=== PATIENT | male | born 1940 | race Caucasian/White ===

== ENCOUNTER 2016-08-07 22:26 | Inpatient (IN) | payer BC ==
--- NOTE | 2016-08-07 22:44 | PDOC ---
History of Present Illness - General History Source: Patient Exam Limitations: No Limitations - History of Present Illness Initial Comments: 08/07/16 23:19 The patient is a 76 year old male with significant past medical history of CAD ( stents x2 and CABG) on plavix, hypertension, hyperlipidemia, GERD, and BPH who presents to the ED for 2 days of acute SOB. Patient also reports nonradiating chest pain, palpitations, and dry cough. States visiting his doctor where he was prescribed zithromax for a presumed bronchitis. Denies lightheadedness, diaphoresis, jaw pain, shoulder pain, arm pain, nausea, or vomiting. Denies sick contacts or recent travels. The patient denies fever, chills, abdominal pain, and diarrhea. Allergies: NKDA Social History: No alcohol, tobacco, or drug use reported. Past Surgical History: s/p stents x2, CABG PCP: Dr. Greyson Kirkland <Awilda Morris - Last Filed: 08/08/16 02:16> - General History Source: Patient <Bishop Gastelum - Last Filed: 08/08/16 19:21> - General Chief Complaint: Shortness of Breath Stated Complaint: CHEST PAIN Time Seen by Provider: 08/07/16 22:41 Past History <Awilda Morris - Last Filed: 08/08/16 02:16> - Past Medical History Cardiac Disorders: Yes GI Disorders: Yes (GERD) HTN: Yes Hypercholesterolemia: Yes - Surgical History Cardiac Surgery: Yes (triple bipass 3 yrs ago) - Psycho/Social/Smoking Cessation Hx Suicidal Ideation: No Smoking History: Never smoked <Bishop Gastelum - Last Filed: 08/08/16 19:21> - Past Medical History Allergies/Adverse Reactions: Allergies Allergy/AdvReac Type Severity Reaction Status Date / Time No Known Allergies Allergy Verified 08/07/16 22:40 Home Medications: Ambulatory Orders Clopidogrel Bisulfate [Plavix -] 75 mg PO DAILY 06/30/13 Nitroglycerin 0.4 mg SL ASDIR PRN 06/30/13 Quinapril HCl [Accupril -] 20 mg PO DAILY 06/30/13 Ranitidine HCl [Zantac] 150 mg PO DAILY 06/30/13 Simvastatin [Zocor -] 40 mg PO HS 06/30/13 Terazosin HCl 5 mg PO HS 06/30/13 Metoprolol Succinate [Toprol XL -] 50 mg PO DAILY #30 tablet 07/02/13 Cephalexin Monohydrate [Keflex -] 500 mg PO QID 08/07/16 Review of Systems - Review of Systems Able to Perform ROS?: Yes Comments:: 08/07/16 23:19 CONSTITUTIONAL: Absent: fever, chills, diaphoresis, generalized weakness, malaise, loss of appetite HEENT: Absent: rhinorrhea, nasal congestion, throat pain, throat swelling, difficulty swallowing, mouth swelling, ear pain, eye pain, visual Changes CARDIOVASCULAR: +chest pain, palpitations Absent: syncope, palpitations, irregular heart rate, lightheadedness, peripheral edema RESPIRATORY: +SOB, dry cough Absent: dyspnea with exertion, orthopnea, wheezing, stridor, hemoptysis GASTROINTESTINAL: Absent: abdominal pain, abdominal distension, nausea, vomiting, diarrhea, constipation, melena, hematochezia GENITOURINARY: Absent: dysuria, frequency, urgency, hesitancy, hematuria, flank pain, genital pain MUSCULOSKELETAL: Absent: myalgia, arthralgia, joint swelling SKIN: Absent: rash, itching, pallor NEUROLOGIC: Absent: headache, focal weakness or paresthesias, dizziness, unsteady gait, seizure, mental status changes, bladder or bowel incontinence <Awilda Morris - Last Filed: 08/08/16 02:16> *Physical Exam - Vital Signs Last Vital Signs Temp Pulse Resp BP Pulse Ox 97.9 F 110 H 20 129/80 90 L 08/07/16 22:39 08/07/16 22:39 08/07/16 22:39 08/07/16 22:39 08/07/16 23:05 - Physical Exam Comments: 08/07/16 23:19 GENERAL: Well developed, well nourished. Awake and alert. Moderate distress. HEENT: Normocephalic, atraumatic. PERRLA, EOMI. No conjunctival pallor. Sclera are non- icteric. Moist mucous membranes. Oropharynx is clear. NECK: Supple. Full ROM. No JVD. Carotid pulses 2+ and symmetric, without bruits. No thyromegaly. No lymphadenopathy. CARDIOVASCULAR: Tachycardia. Regular rhythm. No murmurs, rubs, or gallops. Distal pulses are 2+ and symmetric. PULMONARY: Tachypneic. Supraclavicular retractions. Conversational dyspnea. No wheezing, rales or rhonchi. ABDOMINAL: Soft. Non-tender. Non-distended. No rebound or guarding. No organomegaly. Normoactive bowel sounds. MUSCULOSKELETAL Normal range of motion at all joints. No bony deformities or tenderness. No CVA tenderness. EXTREMITIES: No cyanosis. No clubbing. No edema. No calf tenderness. SKIN: Warm and dry. Normal capillary refill. No rashes. No jaundice. NEUROLOGICAL: Alert, awake, appropriate. Cranial nerves 2-12 intact. Moving all extremities. No gross neurological deficits <wAilda Morris - Last Filed: 08/08/16 02:16> - Vital Signs Last Vital Signs Temp Pulse Resp BP Pulse Ox 97.9 F 110 H 20 129/80 79 L 08/07/16 22:39 08/07/16 22:39 08/07/16 22:39 08/07/16 22:39 08/07/16 22:39 <Bishop Gastelum - Last Filed: 08/08/16 19:21> Heart Score/ECG Review - ECG Impressions Comment:: 08/07/16 23:21 Sinus tachycardia @111bpm L axis deviation Incomplete RBBB Septal infarct, age undetermined Abnormal ECG <Awilda Morris - Last Filed: 08/08/16 02:16> ED Treatment Course - LABORATORY CBC & Chemistry Diagram: 08/07/16 23:15 08/07/16 23:15 - RADIOLOGY Radiograph Interpretation: 08/08/16 01:04 EXAM: Chest x-ray Reviewed by Imaging fire prevention research engineer: FINDINGS: No acute cardiopulmonary disease. No focal pneumonia. Prior coronary artery bypass graft surgery. 08/08/16 02:10 EXAM: CTA chest with contrast Reviewed by Imaging fire prevention research engineer: Findings: *Evaluation of the pulmonary arteries is limited due to moderate respiratory motion. Even so, there are extensive filling defects in the pulmonary arteries bilaterally, compatible with emboli. No saddle embolus. No obvious aortic dissection. Prior coronary artery bypass graft surgery. Small hiatal hernia. A few small nonspecific right middle lobe and left lower lobe nodules. Scattered atelectasis and fibrotic changes in the remainder of the lungs. No focal consolidation, pleural effusion, or pneumothorax. Indeterminate bilateral renal cysts. <Awilda Morris - Last Filed: 08/08/16 02:16> - LABORATORY CBC & Chemistry Diagram: 08/08/16 05:15 08/08/16 05:15 <Bishop Gastelum - Last Filed: 08/08/16 19:21> Medical Decision Making - Medical Decision Making 08/08/16 02:16 Reassessment: Patient reports he had vein stripping procedure 2 weeks ago to the left lower extremity. <Awilda Morris - Last Filed: 08/08/16 02:16> - Medical Decision Making 08/08/16 19:21 Dr. Gastelum: The scribe's documentation has been prepared under my direction and personally reviewed by me in its entirery. I confirm that the note above accurately reflects all work, treatment, procedures, and medical decision making performed by me. <Bishop Gastelum - Last Filed: 08/08/16 19:21> *DC/Admit/Observation/Transfer - Attestations Scribe Attestion: 08/07/16 23:22 Documentation prepared by Awilda Morris, acting as medical administrative specialist for Bishop Gastelum MD/DO. <Awilda Morris - Last Filed: 08/08/16 02:16> - Discharge Dispostion Admit: Yes <Bishop Gastelum - Last Filed: 08/08/16 19:21> Diagnosis at time of Disposition: Pulmonary embolism Qualifiers: Pulmonary embolism type: other Chronicity: acute - Referrals
[2016-08-07 23:25] LABS: BASOPHIL 0.3 % (0-2.0); EOSINOPHIL 1.5 % (0-4.5); MCH 29.7 pg (25.7-33.7); MCHC 32.7 g/dl (32.0-35.9); MEAN CELL VOLUME 90.9 fl (80-96); MEAN PLT VOLUME 9.6 fl (7.5-11.1); NEUTROPHILS 75.5 % (42.8-82.8); PLATELET COUNT 124 K/MM3 (134-434); WHITE BLOOD COUNT 8.8 K/mm3 (4.0-10.0)
[2016-08-07 23:37] LABS: INR 1.24 (0.82-1.09); PROTHROMBIN TIME (PATIENT) 13.7 SEC (9.98-11.88)
[2016-08-07 23:52] LABS: ALBUMIN 3.6 g/dl (3.4-5.0); ANION GAP 10 (8-16); BILIRUBIN,TOTAL 0.8 mg/dL (0.2-1.0); CALCIUM 8.6 mg/dL (8.5-10.1); CO2 24 mmol/L (21-32); CREATININE 1.1 mg/dL (0.7-1.3); GLUCOSE,RANDOM 222 mg/dL (74-106); SGOT/AST 24 U/L (15-37); SGPT/ALT 27 U/L (12-78); TOT PROT 6.5 g/dl (6.4-8.2)
[2016-08-07 23:53] LABS: ALK PHOS 50 U/L (45-117)
[2016-08-07 23:55] LABS: TROPONIN I 0.06 ng/ml (0.00-0.05)
[2016-08-08] MEDS ORDERED: ENOXAPARIN NA (PORCINE) 80 MG/0.8 ML DISP.SYRIN SQ ONE (02:12)
[2016-08-08] MEDS ORDERED: ENOXAPARIN NA (PORCINE) 80 MG/0.8 ML DISP.SYRIN SQ SCH (02:15)
--- NOTE | 2016-08-08 02:28 | PN ---
Teaching Attending Note Name of Resident: Rob Barton ATTENDING PHYSICIAN STATEMENT I saw and evaluated the patient. I reviewed the resident's note and discussed the case with the resident. I agree with the resident's findings and plan as documented. SUBJECTIVE: 76 yo M with Pmhx of CAD (s/p stent X2/CABG), HTN, HLD, GERD, and BPH who presents with shortness of breath, chest pain, palpitations. States he saw PMD and was prescribed Zithromax. Pt. had LLE vein stripping X 2 weeks ago, OBJECTIVE: Physical: VS: Vital Signs Period Temp Pulse Resp BP Sys/[place] Pulse Ox Last 24 Hr 97.9 F 103-110 18-20 129-134/80-80 79-92 GEN: Resting in bed, able to speak full sentences HEENT: NCAT, PERRL CARD: Stach S1, S2 RESP: CTAB ABD: BSX4, NTD to palpation EXT: - C/C/E EKG: Sinus tachycardia @111bpm L axis deviation Incomplete RBBB Septal infarct, age undetermined Abnormal EC CXR: Negative CTA- Bilateral PE, NO saddle emboli, small hiatal hernia, RML and LLL nodules non-specific, No consolidation or effusion ASSESSMENT AND PLAN: 76 yo M with pmhx of CAD, HTN, HLD, GERD, BPH and recent sx. who presents with shortness of breath, found to have a bilateral OK 1.) Bilateral PE- Provoked - Lovenox 1mg/kg Q 12 - Echo - Currently hemodynamically stable - Duplex LE - IF RV strain significant, or becomes unstable consider thrombolytics 2.) Hx. od CAD Chest Pain/Troponin elevation - Most likely demand - Trend - monitor on tele - C/W home meds 3.) HTN - Hold home meds for now 4.) HLD - C/w home meds 5.) Dvt Ppx - On Lovenox Admit to ICU CC time 38 Minutes
--- NOTE | 2016-08-08 03:14 | HP ---
CHIEF COMPLAINT: SOB PCP: Dr. Greyson Kirkland HISTORY OF PRESENT ILLNESS: 76 y/o M w/PMH of CAD s/p 2 stents, CABG, on plavix, HTN, HLD, GERD, BPH, presents to ER with SOB. Pt states he has had dry cough and SOB for the last few days that has remained the same over the frame. He came into the ER today because he began feeling palpitations. He also experienced exertional dyspnea during this time. He has also developed some midsternal chest pain that does not radiate during this time. His PCP suspected bronchitis and prescribed zithromax but it did not help pt. Pt reports having a LLE vein stripping procedure done 2 weeks. He denies N/V/F/C, SIDDIQUI, light-headedness, dizziness, visual changes, hearing changes, ringing in ears, peripheral swelling, calf pain , recent long travel history. ER course was notable for: (1) CXR, CTA chest, lovenox (2) (3) Recent Travel: denies PAST MEDICAL HISTORY:CAD s/p 2 stents, CABG, on plavix, HTN, HLD, GERD, BPH PAST SURGICAL HISTORY:2 stents, CABG, LLE vein stripping Social History: Smoking: denies Alcohol: denies Drugs: denies Family History: Mother: MS Allergies No Known Allergies Allergy (Verified 08/07/16 22:40) HOME MEDICATIONS: Home Medications Medication Instructions Recorded Clopidogrel Bisulfate [Plavix -] 75 mg PO DAILY 06/30/13 Nitroglycerin 0.4 mg SL ASDIR PRN 06/30/13 Quinapril HCl [Accupril -] 20 mg PO DAILY 06/30/13 Ranitidine HCl [Zantac] 150 mg PO DAILY 06/30/13 Simvastatin [Zocor -] 40 mg PO HS 06/30/13 Terazosin HCl 5 mg PO HS 06/30/13 Metoprolol Succinate [Toprol XL -] 50 mg PO DAILY #30 tablet 07/02/13 Cephalexin Monohydrate [Keflex -] 500 mg PO QID 08/07/16 REVIEW OF SYSTEMS CONSTITUTIONAL: Absent: fever, chills, diaphoresis, generalized weakness, malaise HEENT: Absent: ear pain, eye pain, visual changes CARDIOVASCULAR: +chest pain, palpitations Absent: chest pain, syncope, irregular heart rate, lightheadedness, peripheral edema RESPIRATORY: +dry cough, sob, exertional dyspnea Absent: orthopnea, wheezing, stridor, hemoptysis GASTROINTESTINAL: Absent: abdominal pain, abdominal distension, nausea, vomiting, diarrhea, constipation, hematochezia GENITOURINARY: Absent: dysuria, frequency, hematuria, flank pain, genital pain NEUROLOGIC: Absent: headache, focal weakness or paresthesias, dizziness Vital Signs Temperature 98.1 F 08/08/16 03:00 Pulse Rate 101 H 08/08/16 03:00 Respiratory Rate 18 08/08/16 03:00 Blood Pressure 130/76 08/08/16 03:00 O2 Sat by Pulse Oximetry (%) 93 L 08/08/16 03:00 PHYSICAL EXAMINATION GENERAL: Awake, alert, and fully oriented, with rapid breathing. HEAD: Normal with no signs of trauma. EYES: extraocular movements intact, sclera anicteric, conjunctiva clear. No lid lag. EARS, NOSE, THROAT: Ears normal, nares patent, Moist mucous membranes. NECK: Normal range of motion, supple LUNGS: tachypneic. Breath sounds equal, clear to auscultation bilaterally. No wheezes, and no crackles. No accessory muscle use. HEART: tachycardic. normal S1 and S2 without murmur, rub or gallop. ABDOMEN: Soft, nontender, not distended, normoactive bowel sounds, no guarding, no rebound, no masses. No hepatomegaly or splenomegaly. MUSCULOSKELETAL: Normal range of motion at all joints. No bony deformities or tenderness. No CVA tenderness. UPPER EXTREMITIES: 2+ radial pulses, warm, well-perfused. No peripheral edema. No pain with palpation. LOWER EXTREMITIES: 2+ DP pulses, warm, well-perfused. No calf tenderness. No peripheral edema. Homans sign negative. LLE with steristrips. NEUROLOGICAL: Normal speech. Gait not observed. PSYCHIATRIC: Cooperative. Good eye contact. Appropriate mood and affect. SKIN: Warm, dry CBCD WBC 8.8 K/mm3 (4.0-10.0) D 08/07/16 23:15 RBC 4.50 M/mm3 (4.00-5.60) 08/07/16 23:15 Hgb 13.4 GM/dL (11.7-16.9) 08/07/16 23:15 Hct 40.9 % (35.4-49) 08/07/16 23:15 MCV 90.9 fl (80-96) 08/07/16 23:15 MCHC 32.7 g/dl (32.0-35.9) 08/07/16 23:15 RDW 14.0 % (11.9-15.9) 08/07/16 23:15 Plt Count 124 K/MM3 (134-434) L 08/07/16 23:15 MPV 9.6 fl (7.5-11.1) D 08/07/16 23:15 CMP Sodium 141 mmol/L (136-145) 08/07/16 23:15 Potassium 4.0 mmol/L (3.5-5.1) 08/07/16 23:15 Chloride 107 mmol/L (98-107) 08/07/16 23:15 Carbon Dioxide 24 mmol/L (21-32) 08/07/16 23:15 Anion Gap 10 (8-16) 08/07/16 23:15 BUN 22 mg/dL (7-18) H D 08/07/16 23:15 Creatinine 1.1 mg/dL (0.7-1.3) D 08/07/16 23:15 Creat Clearance w eGFR > 60 (>60) 08/07/16 23:15 Random Glucose 222 mg/dL (74-106) H D 08/07/16 23:15 Calcium 8.6 mg/dL (8.5-10.1) 08/07/16 23:15 Total Bilirubin 0.8 mg/dL (0.2-1.0) D 08/07/16 23:15 AST 24 U/L (15-37) D 08/07/16 23:15 ALT 27 U/L (12-78) 08/07/16 23:15 Alkaline Phosphatase 50 U/L (45-117) D 08/07/16 23:15 Total Protein 6.5 g/dl (6.4-8.2) 08/07/16 23:15 Albumin 3.6 g/dl (3.4-5.0) 08/07/16 23:15 CARDIAC ENZYMES Creatine Kinase 97 IU/L (39-308) 08/07/16 23:15 Troponin I 0.06 ng/ml (0.00-0.05) H D 08/07/16 23:15 IMAGING: CXR: No acute cardiopulmonary disease. No focal pneumonia. Prior coronary artery bypass graft surgery. CTA Chest: Reviewed by Imaging fusion operator: Findings: *Evaluation of the pulmonary arteries is limited due to moderate respiratory motion. Even so, there are extensive filling defects in the pulmonary arteries bilaterally, compatible with emboli. No saddle embolus. No obvious aortic dissection. Prior coronary artery bypass graft surgery. Small hiatal hernia. A few small nonspecific right middle lobe and left lower lobe nodules. Scattered atelectasis and fibrotic changes in the remainder of the lungs. No focal consolidation, pleural effusion , or pneumothorax. Indeterminate bilateral renal cysts. EKG: Sinus tachycardia @111bpm L axis deviation Incomplete RBBB Septal infarct, age undetermined Abnormal ECG Active Medications Atorvastatin Calcium (Lipitor -) 20 mg PO HS AL Clopidogrel Bisulfate (Plavix -) 75 mg PO DAILY AL Enoxaparin Sodium (Lovenox -) 80 mg SQ BID AL Metoprolol Succinate (Toprol Xl -) 50 mg PO DAILY AL Non-Formulary Medication (Ranitidine Hcl [Zantac]) 150 mg PO DAILY AL Quinapril HCl (Accupril -) 20 mg PO DAILY AL Terazosin HCl (Hytrin -) 5 mg PO HS AL ASSESSMENT/PLAN: 76 y/o M w/PMH of CAD s/p 2 stents, CABG, on plavix, HTN, HLD, GERD, BPH, presents to ER with SOB, dry cough, exertional dyspnea over the last few days and palpitations today. Found to have B/L pulm artery embolisms on CTA chest. -B/L PE -D-dimer 3682, CTA chest prelim read findings suggest b/l pulm aa PE -lovenox 80 mg sq q12h (1mg/kg lovenox) -no hemodynamic instablility at this time -f/u official CTA chest read -Echo ordered, Duplex U/S b/l LE ordered -monitor for arrhythmias -O2 supp to keep O2 sat > 92% -Elevated trops -likely secondary to demand ischemia, trend -CAD -c/w plavix, metoprolol xl, atorvastatin 20 mg po qhs (converted from simvastatin) -HTN -c/w quinapril 20 mg po qd -BPH -c/w terazosin 5 mg po qhs -DVT ppx -on lovenox -FEN -No fluids at this time -Monitor electrolytes -Cardiac diet -Dispo -Monitor in ICU, if no beds available monitor on tele Visit type - Emergency Visit Emergency Visit: Yes ED Registration Date: 08/08/16 Care time: The patient presented to the Emergency Department on the above date and was hospitalized for further evaluation of their emergent condition. - New Patient This patient is new to me today: Yes Date on this admission: 08/08/16 - Critical Care Critical Care patient: Yes Total Critical Care Time (in minutes): 35 Critical Care Statement: The care of this patient involved high complexity decision making to prevent further life threatening deterioration of the patient 's condition and/or to evalute & treat vital organ system(s) failure or risk of failure.
[2016-08-08 03:43] LABS: ARTERIAL BLD GAS O2 SATURATION 93.9 % (90-98.9); ARTERIAL BLOOD GAS BASE EXCESS -0.9 meq/l (-2-2); ARTERIAL BLOOD GAS HCO3 22.3 meq/L (22-26); ARTERIAL BLOOD GAS PO2 70.4 mmHg (70-100); ARTERIAL BLOOD GAS pH 7.43 (7.35-7.45)
[2016-08-08 03:46] LABS: ALLENS TEST POSITIVE; ART PUNCT SITE RIGHT RADIAL; LPM/O2% 5.0LPM; PT. ON O2? YES; TYPE OF O2 NASAL CANNULA
[2016-08-08 04:05] VITALS: BMI 29.2
--- NOTE | 2016-08-08 04:36 | CONSULT ---
Consult Consult Specialty:: Pulm/CCM Reason for Consultation:: sub massive PE - History of Present Illness Chief Complaint: SOB, dry cough History of Present Illness: This is a 76 yo man HTN, HL, CAD s/p PCI and CABGx3 (~2008) who presented to ED with non productive cough x 2 days after recent LLE vein stripping. Patient recently seen by PMD and placed on azithromycin for cough. On day of admission he noted some non radiating CP with cough and palpitations and presented to ED. In ED patient hypoxic requiring NC 5lpm. DDimer positive. CTA done showing bilateral filling defects c/w PEs. BP stable 120/80s. Lovenox started. Patient denies: fever, chills, sick contacts, n/v/diarrhea. In the ICU patient seen w/o distress comfortable on NC. - History Source History Provided By: Patient, Medical Record Limitations to Obtaining History: No Limitations - Past Medical History Cardio/Vascular: Yes: CAD, HTN, Hyperlipdemia Gastrointestinal: Yes: GERD Renal/: Yes: BPH - Past Surgical History Past Surgical History: Yes: None, Vein Stripping/Ligation - Smoking History Smoking history: Never smoked - Social History Usual Living Arrangement: Alone Home Medications - Allergies Allergies/Adverse Reactions: Allergies Allergy/AdvReac Type Severity Reaction Status Date / Time No Known Allergies Allergy Verified 08/07/16 22:40 - Home Medications Home Medications: Ambulatory Orders Clopidogrel Bisulfate [Plavix -] 75 mg PO DAILY 06/30/13 Nitroglycerin 0.4 mg SL ASDIR PRN 06/30/13 Quinapril HCl [Accupril -] 20 mg PO DAILY 06/30/13 Ranitidine HCl [Zantac] 150 mg PO DAILY 06/30/13 Simvastatin [Zocor -] 40 mg PO HS 06/30/13 Terazosin HCl 5 mg PO HS 06/30/13 Metoprolol Succinate [Toprol XL -] 50 mg PO DAILY #30 tablet 07/02/13 Cephalexin Monohydrate [Keflex -] 500 mg PO QID 08/07/16 Family Disease History - Family Disease History Family History: Unremarkable Review of Systems - Review of Systems Cardiovascular: reports: Palpitations, Shortness of Breath Respiratory: reports: Cough, SOB on Exertion Physical Exam Vital Signs: Vital Signs Temperature 97.3 F L 08/08/16 03:43 Pulse Rate 105 H 08/08/16 03:43 Respiratory Rate 29 H 08/08/16 03:43 Blood Pressure 125/83 08/08/16 03:43 O2 Sat by Pulse Oximetry (%) 98 08/08/16 03:43 Current Medications Atorvastatin Calcium (Lipitor -) 20 mg PO HS [facility] Clopidogrel Bisulfate (Plavix -) 75 mg PO DAILY [facility] Enoxaparin Sodium (Lovenox -) 80 mg SQ BID [facility] Metoprolol Succinate (Toprol Xl -) 50 mg PO DAILY [facility] Quinapril HCl (Accupril -) 20 mg PO DAILY [facility] Ranitidine HCl (Zantac -) 150 mg PO DAILY AL Terazosin HCl (Hytrin -) 5 mg PO HS [facility] Constitutional: Yes: Well Nourished, Mild Distress Eyes: Yes: EOM Intact HENT: Yes: Normocephalic Neck: Yes: Trachea Midline Cardiovascular: Yes: Tachycardia, S1, S2 Respiratory: Yes: CTA Bilaterally Gastrointestinal: Yes: Normal Bowel Sounds, Soft Extremities: Yes: Erythema, Other (old Steristrips on left leg at sight of recent procedure) Edema: LLE: 2+, RLE: 1+ Neurological: Yes: Alert, Oriented Labs: CBCD WBC 8.8 K/mm3 (4.0-10.0) D 08/07/16 23:15 RBC 4.50 M/mm3 (4.00-5.60) 08/07/16 23:15 Hgb 13.4 GM/dL (11.7-16.9) 08/07/16 23:15 Hct 40.9 % (35.4-49) 08/07/16 23:15 MCV 90.9 fl (80-96) 08/07/16 23:15 MCHC 32.7 g/dl (32.0-35.9) 08/07/16 23:15 RDW 14.0 % (11.9-15.9) 08/07/16 23:15 Plt Count 124 K/MM3 (134-434) L 08/07/16 23:15 MPV 9.6 fl (7.5-11.1) D 08/07/16 23:15 CMP Sodium 141 mmol/L (136-145) 08/07/16 23:15 Potassium 4.0 mmol/L (3.5-5.1) 08/07/16 23:15 Chloride 107 mmol/L (98-107) 08/07/16 23:15 Carbon Dioxide 24 mmol/L (21-32) 08/07/16 23:15 Anion Gap 10 (8-16) 08/07/16 23:15 BUN 22 mg/dL (7-18) H D 08/07/16 23:15 Creatinine 1.1 mg/dL (0.7-1.3) D 08/07/16 23:15 Creat Clearance w eGFR > 60 (>60) 08/07/16 23:15 Random Glucose 222 mg/dL (74-106) H D 08/07/16 23:15 Calcium 8.6 mg/dL (8.5-10.1) 08/07/16 23:15 Total Bilirubin 0.8 mg/dL (0.2-1.0) D 08/07/16 23:15 AST 24 U/L (15-37) D 08/07/16 23:15 ALT 27 U/L (12-78) 08/07/16 23:15 Alkaline Phosphatase 50 U/L (45-117) D 08/07/16 23:15 Total Protein 6.5 g/dl (6.4-8.2) 08/07/16 23:15 Albumin 3.6 g/dl (3.4-5.0) 08/07/16 23:15 CARDIAC ENZYMES Creatine Kinase 97 IU/L (39-308) 08/07/16 23:15 Troponin I 0.06 ng/ml (0.00-0.05) H D 08/07/16 23:15 Laboratory Tests 08/07/16 08/07/16 23:15 23:15 D-Dimer 3682 H B-Natriuretic Peptide 508.70 H Imaging - Results Chest X-ray: Report Reviewed, Image Reviewed Cat Scan: Report Reviewed, Image Reviewed Problem List - Problems (1) Pulmonary embolism Code(s): I26.99 - OTHER PULMONARY EMBOLISM WITHOUT ACUTE COR PULMONALE Qualifiers: Pulmonary embolism type: other Chronicity: acute (2) CAD (coronary artery disease) Code(s): I25.10 - ATHSCL HEART DISEASE OF [place] CORONARY ARTERY W/O ANG PCTRS (3) Hyperlipidemia Code(s): E78.5 - HYPERLIPIDEMIA, UNSPECIFIED (4) Hypertension Code(s): I10 - ESSENTIAL (PRIMARY) HYPERTENSION Assessment/Plan a/p 76 yo man w/ bilateral PE -no ABX at this time does not appear infected -cont LMWH bid -O2 for sat >92% -monitor for signs of massive PE: hypotension, syncope, impending doom -ECHO -if significant RV strain noted consider IR for cath directed thrombolysis -LE dopplers -cont plavix and statin Boerem ACNP Pulm/CCM CCT: 35m
[2016-08-08] MEDS ORDERED: guaiFENesin/CODEINE 5 ML UNIT-DOSE CUPS PO ONE ×2 (06:03→19:10)
[2016-08-08 06:30] LABS: BASOPHIL 0.5 % (0-2.0); EOSINOPHIL 0.5 % (0-4.5); MCH 29.7 pg (25.7-33.7); MCHC 33.1 g/dl (32.0-35.9); MEAN CELL VOLUME 89.7 fl (80-96); MEAN PLT VOLUME 8.8 fl (7.5-11.1); NEUTROPHILS 66.9 % (42.8-82.8); PLATELET COUNT 126 K/MM3 (134-434); WHITE BLOOD COUNT 6.5 K/mm3 (4.0-10.0)
[2016-08-08 06:58] LABS: ALBUMIN 3.3 g/dl (3.4-5.0); ALK PHOS 47 U/L (45-117); ANION GAP 6 (8-16); BILIRUBIN,TOTAL 0.7 mg/dL (0.2-1.0); CALCIUM 8.1 mg/dL (8.5-10.1); CO2 29 mmol/L (21-32); CREATININE 0.9 mg/dL (0.7-1.3); GLUCOSE,RANDOM 118 mg/dL (74-106); SGOT/AST 20 U/L (15-37); SGPT/ALT 24 U/L (12-78)
--- NOTE | 2016-08-08 07:21 | PN ---
Physical Exam: SUBJECTIVE: Patient seen and examined complains of intermittent dry cough denies fevers, chest pain, palpitations, difficulty breathing, vomiting. OBJECTIVE: Vital Signs Period Temp Pulse Resp BP Sys/Callaway Pulse Ox Last 24 Hr 97.3 F-98.1 F 90-105 18-29 108-130/69-83 93-98 GENERAL: The patient is awake, alert, and fully oriented, in no acute distress. HEAD: Normal with no signs of trauma. EYES: PERRL, extraocular movements intact, sclera anicteric, conjunctiva clear. ENT: nares patent, oropharynx clear without exudates, moist mucous membranes. NECK: Trachea midline, full range of motion, supple. LUNGS: Breath sounds equal, clear to auscultation bilaterally, no wheezes, no crackles, no accessory muscle use. HEART: Regular rate and rhythm, S1, S2 without murmur, rub or gallop. ABDOMEN: Soft, nontender, nondistended, normoactive bowel sounds, no guarding EXTREMITIES: 2+ dorsalis pedis and radial pulses b/l, warm, well-perfused, no edema. left leg with steri strips in place medially. venous stasis hyperpigmented skin in left lower leg. NEUROLOGICAL: Cranial nerves II through XII grossly intact. Normal speech, 5/5 strength in hand senior advisory, 4/5 hip extension b/l. Laboratory Results - last 24 hr 08/08/16 08/08/16 08/08/16 03:30 05:15 05:15 WBC 6.5 RBC 4.30 Hgb 12.8 Hct 38.5 MCV 89.7 MCHC 33.1 RDW 14.0 Plt Count 126 L MPV 8.8 Neutrophils % 66.9 Lymphocytes % 21.6 D Monocytes % 10.5 H Eosinophils % 0.5 Basophils % 0.5 PTT (Actin FS) 38.7 H Puncture Site Right radial ABG pH 7.43 ABG pCO2 at Pt Temp 33.9 L ABG pO2 at Pt Temp 70.4 ABG HCO3 22.3 ABG O2 Sat (Measured) 93.9 ABG O2 Content 18.0 ABG Base Excess -0.9 Tunde Test Positive O2 Delivery Device Nasal cannula Oxygen Flow Rate 5.0lpm PEEP 0.0 Sodium Potassium Chloride Carbon Dioxide Anion Gap BUN Creatinine Creat Clearance w eGFR Random Glucose Calcium Total Bilirubin AST ALT Alkaline Phosphatase Total Protein Albumin 08/08/16 05:15 WBC RBC Hgb Hct MCV MCHC RDW Plt Count MPV Neutrophils % Lymphocytes % Monocytes % Eosinophils % Basophils % PTT (Actin FS) Puncture Site ABG pH ABG pCO2 at Pt Temp ABG pO2 at Pt Temp ABG HCO3 ABG O2 Sat (Measured) ABG O2 Content ABG Base Excess Tunde Test O2 Delivery Device Oxygen Flow Rate PEEP Sodium 143 Potassium 4.0 Chloride 108 H Carbon Dioxide 29 D Anion Gap 6 L BUN 21 H Creatinine 0.9 Creat Clearance w eGFR > 60 Random Glucose 118 H D Calcium 8.1 L Total Bilirubin 0.7 AST 20 ALT 24 Alkaline Phosphatase 47 Total Protein 6.0 L Albumin 3.3 L Active Medications Atorvastatin Calcium (Lipitor -) 20 mg PO HS [facility] Clopidogrel Bisulfate (Plavix -) 75 mg PO DAILY [facility] Last Admin: 08/08/16 11:38 Dose: 75 mg Enoxaparin Sodium (Lovenox -) 80 mg SQ BID [facility] Last Admin: 08/08/16 11:38 Dose: 80 mg Guaifenesin (Robitussin -) 10 ml PO Q4H PRN PRN Reason: COUGH Last Admin: 08/08/16 17:35 Dose: 10 ml Metoprolol Succinate (Toprol Xl -) 50 mg PO DAILY [facility] Last Admin: 08/08/16 11:38 Dose: 50 mg Quinapril HCl (Accupril -) 20 mg PO DAILY [facility] Last Admin: 08/08/16 15:31 Dose: 20 mg Ranitidine HCl (Zantac -) 150 mg PO DAILY [facility] Last Admin: 08/08/16 11:38 Dose: 150 mg Terazosin HCl (Hytrin -) 5 mg PO [facility] ASSESSMENT/PLAN: 76 year old man with HTN, HLD, CAD s/p PCI stent, CABG and recent left saphaneous embolectomy and presented to ED with cough, found to have elevated d -dimer and admitted to ICU for b/l PE seen on CTA. - report in chart from vein center regarding procedure Cardiovascular currently hemodynamically stable, echo today shows increased pulmonary HTN not previously seen on old echo (06/2013). NPO at midnight for TPA thrombolysis by IR tomorrow, AC with lovenox 80mg sq BID will likely need AC as outpatient, continue plavix po daily HTN controlled with toprol XL 50mg po daily, accupril 20mg po daily HLD - lipitor 20mg po HS troponin elevation likely from demand rather than ACS Pulmonary monitor for signs of respiratory distress maintain on nasal cannula, >92% saturation Guaifenesin 10mg po prn q4h for cough likley caused by PE Renal elevated cr - resolved GI Gerd Zantac 150mg po daily terazosin 5mg po HS Hematological - pt does not have personal or family hx of coagulopathy/PE/DVT/cancers(remote hx of likely basal cell cancer removed from his lower lip) , thrombus likely provoked from recent embolectomy/decreased mobility post-procedure. will likely require ac for 3 months as outpatient monitor platelet count, currently 126 DVT: lovenox Diet: cardiac diet Visit type - Emergency Visit Emergency Visit: No - New Patient This patient is new to me today: Yes Date on this admission: 08/08/16 - Critical Care Critical Care patient: Yes Total Critical Care Time (in minutes): 39 Critical Care Statement: The care of this patient involved high complexity decision making to prevent further life threatening deterioration of the patient 's condition and/or to evalute & treat vital organ system(s) failure or risk of failure.
--- NOTE | 2016-08-08 08:13 | PN ---
Physical Exam: SUBJECTIVE: Patient seen and examined in ICU. He stated that his shortness of breath has been getting worse in the past week with worsening non productive cough. Denies chest pain, palpitation, hemoptysis, abd pain, fever or chills. OBJECTIVE: Vital Signs Period Temp Pulse Resp BP Sys/Callaway Pulse Ox Last 24 Hr 97.3 F-98.1 F 90-105 18-29 108-130/69-83 93-98 GENERAL: AAO x 3, In mild cardiopulmonary distress on 4L NC EYES: PERRLA, sclera anicteric, conjunctiva clear. LUNGS: Fair air entry with rhonchi bilaterally HEART: tachycardic, S1 and S2 present, no murmur ABDOMEN: Soft, nontender, nondistended, normoactive bowel sounds. EXTREMITIES: chronic venous stasis with hyperpigmentation bilaterally, no edema , +2 symmetrical b/l peripheral pulses CBCD WBC 6.5 K/mm3 (4.0-10.0) 08/08/16 05:15 RBC 4.30 M/mm3 (4.00-5.60) 08/08/16 05:15 Hgb 12.8 GM/dL (11.7-16.9) 08/08/16 05:15 Hct 38.5 % (35.4-49) 08/08/16 05:15 MCV 89.7 fl (80-96) 08/08/16 05:15 MCHC 33.1 g/dl (32.0-35.9) 08/08/16 05:15 RDW 14.0 % (11.9-15.9) 08/08/16 05:15 Plt Count 126 K/MM3 (134-434) L 08/08/16 05:15 MPV 8.8 fl (7.5-11.1) 08/08/16 05:15 CMP Sodium 143 mmol/L (136-145) 08/08/16 05:15 Potassium 4.0 mmol/L (3.5-5.1) 08/08/16 05:15 Chloride 108 mmol/L (98-107) H 08/08/16 05:15 Carbon Dioxide 29 mmol/L (21-32) D 08/08/16 05:15 Anion Gap 6 (8-16) L 08/08/16 05:15 BUN 21 mg/dL (7-18) H 08/08/16 05:15 Creatinine 0.9 mg/dL (0.7-1.3) 08/08/16 05:15 Creat Clearance w eGFR > 60 (>60) 08/08/16 05:15 Calcium 8.1 mg/dL (8.5-10.1) L 08/08/16 05:15 Total Bilirubin 0.7 mg/dL (0.2-1.0) 08/08/16 05:15 AST 20 U/L (15-37) 08/08/16 05:15 ALT 24 U/L (12-78) 08/08/16 05:15 Alkaline Phosphatase 47 U/L (45-117) 08/08/16 05:15 Total Protein 6.0 g/dl (6.4-8.2) L 08/08/16 05:15 Albumin 3.3 g/dl (3.4-5.0) L 08/08/16 05:15 Intake & Output 08/05/16 08/06/16 08/07/16 08/08/16 23:59 23:59 23:59 23:59 Intake Total 50 Balance 50 Weight 81.647 kg 82 kg Active Medications Generic Name Dose Route Start Last Admin Trade Name Freq PRN Reason Stop Dose Admin Atorvastatin Calcium 20 mg 08/08/16 22:00 Lipitor - PO HS [facility] Clopidogrel Bisulfate 75 mg 08/08/16 10:00 Plavix - PO DAILY [facility] Enoxaparin Sodium 80 mg 08/08/16 10:00 Lovenox - SQ BID [facility] Metoprolol Succinate 50 mg 08/08/16 10:00 Toprol Xl - PO DAILY [facility] Quinapril HCl 20 mg 08/08/16 10:00 Accupril - PO DAILY [facility] Ranitidine HCl 150 mg 08/08/16 10:00 Zantac - PO DAILY [facility] Terazosin HCl 5 mg 08/08/16 22:00 Hytrin - PO HS [facility] IMAGING CTA on 08/07: extensive, bilateral pulmonary embolism Lower extremity doppler on 08/08: pending ECHO on 08/08: pending CXR on 08/07: no acute finding EKG on 08/07: Sinus tachycardia @111bpm, L axis deviation, Incomplete RBBB, Septal infarct, age undetermined ASSESSMENT/PLAN: 76 yo M h/o CAD s/p CABG + stents x 2 on plavix and chronic venous stasis s/p vein stripping admitted to the ICU for bilateral PE. Submassive Pulmonary Embolism - With possible RV strain * incomplete RBBB * elevated troponins and BNP * pending ECHO * avoid fluids that could cause RV dilation - Remains hemodynamically stable * maintain MAP > 65 - ICU team will decide on tPA * no absolute or relative contraindication for tPA - Cont. lovenox therapuetic dose of 80mg BID * RIETE score ~ 1-2: low to intermediate bleeding risk from PE anticoagulation - Cont. O2 to maintain sat > 92% Elevated troponins and BNP - Demand ischemia vs. RV strain - Cont. to trend trop CAD - Cont. plavix 75mg, metoprolol xl 50mg, atorvastatin 20 mg daily HTN - Cont. quinapril 20 mg daily BPH - Cont. terazosin 5 mg daily FEN - Avoid aggressive hydration - Monitor electrolytes - Cardiac diet Prophylaxis - DVT: on lovenox - GI: H2 katie Dispo - Cont. to monitor in ICU Visit type - Emergency Visit Emergency Visit: No - New Patient This patient is new to me today: Yes Date on this admission: 08/08/16 - Critical Care Critical Care patient: Yes Total Critical Care Time (in minutes): 45 Critical Care Statement: The care of this patient involved high complexity decision making to prevent further life threatening deterioration of the patient 's condition and/or to evalute & treat vital organ system(s) failure or risk of failure.
--- NOTE | 2016-08-08 11:07 | MSN ---
Progress Note (short form) - Note Progress Note: Subjective: Patient presented to the ER after 1 week of shortness of breath, dry cough, and nonradiating chest pain. Patient had been seen in the previous week by his primary care doctor and was treated with antibiotics for suspected bronchitis. His symptoms persisted which is why he was brought to the ER. The patient was found to have bilateral pulmonary emboli on CTA and right sided heart strain as demonstrated by right bundle branch block on EKG. Patient was admitted to the ICU. patient was seen by me at the bedside. Patient is alert and oriented and able to answer questions. The patient stated that he felt the same today as previous days. He stated that he still had a cough that is made worse by talking and movements. The patient denies any productive sputum or any chest pain at this time. The patient stated that he has had had symptoms like this before that have resolved after a week and he has never sought out medical care. The patient also denies any leg pain or swelling that may be attributed to previous deep vein thrombosis. . Patent also denies any fever, chills nausea , vomiting, headache or abdominal pain. Patient has been eating and drinking without issue and has been urinating and defecating regularly. Vital Signs Period Temp Pulse Resp BP Sys/Callaway Pulse Ox Last 24 Hr 97.3 F-98.4 F 84-110 18-29 107-134/65-83 79-98 Exam: General- patient is alert oriented, appears stated age and is in no acute distress Neuro- no focal neurological deficits are noted Eyes- PEARLA, EOM are intact, conjunctiva and sclera are clear and uncompromised. Neck- supple, trachea is midline, no JVD, no lyphadenopahty, no carotid bruit auscultated. Heart- regular rate and rhythm, normal S1 and S2 with no murmurs rubs or gallops. Lungs- Wheezes are heard bilaterally in all lung field, with coughing present with deep inspiration. no rales or rhonchi are present Extremities- 4/5 muscle strength and 2/4 pulses with intact sensation in all extremities with no swelling or edema in the lower extremities. Redness was noted bilaterally in the feet that is not new to the patient. Abdomen- no guarding or distention, normoactive bowel sounds, and no tenderness to palpation in any of the four quadrants. Laboratory Results - last 24 hr 08/07/16 08/07/16 08/07/16 23:15 23:15 23:15 WBC 8.8 D RBC 4.50 Hgb 13.4 Hct 40.9 MCV 90.9 MCHC 32.7 RDW 14.0 Plt Count 124 L MPV 9.6 D Neutrophils % 75.5 D Lymphocytes % 14.3 D Monocytes % 8.4 Eosinophils % 1.5 Basophils % 0.3 INR 1.24 H PTT (Actin FS) D-Dimer Puncture Site ABG pH ABG pCO2 at Pt Temp ABG pO2 at Pt Temp ABG HCO3 ABG O2 Sat (Measured) ABG O2 Content ABG Base Excess Tunde Test O2 Delivery Device Oxygen Flow Rate PEEP Sodium 141 Potassium 4.0 Chloride 107 Carbon Dioxide 24 Anion Gap 10 BUN 22 H D Creatinine 1.1 D Creat Clearance w eGFR > 60 Random Glucose 222 H D Calcium 8.6 Total Bilirubin 0.8 D AST 24 D ALT 27 Alkaline Phosphatase 50 D Creatine Kinase Troponin I B-Natriuretic Peptide Total Protein 6.5 Albumin 3.6 08/07/16 08/07/16 08/08/16 23:15 23:15 03:30 WBC RBC Hgb Hct MCV MCHC RDW Plt Count MPV Neutrophils % Lymphocytes % Monocytes % Eosinophils % Basophils % INR PTT (Actin FS) D-Dimer 3682 H Puncture Site Right radial ABG pH 7.43 ABG pCO2 at Pt Temp 33.9 L ABG pO2 at Pt Temp 70.4 ABG HCO3 22.3 ABG O2 Sat (Measured) 93.9 ABG O2 Content 18.0 ABG Base Excess -0.9 Tunde Test Positive O2 Delivery Device Nasal cannula Oxygen Flow Rate 5.0lpm PEEP 0.0 Sodium Potassium Chloride Carbon Dioxide Anion Gap BUN Creatinine Creat Clearance w eGFR Random Glucose Calcium Total Bilirubin AST ALT Alkaline Phosphatase Creatine Kinase 97 Troponin I 0.06 H D B-Natriuretic Peptide 508.70 H Total Protein Albumin 08/08/16 08/08/16 08/08/16 05:15 05:15 05:15 WBC 6.5 RBC 4.30 Hgb 12.8 Hct 38.5 MCV 89.7 MCHC 33.1 RDW 14.0 Plt Count 126 L MPV 8.8 Neutrophils % 66.9 Lymphocytes % 21.6 D Monocytes % 10.5 H Eosinophils % 0.5 Basophils % 0.5 INR PTT (Actin FS) 38.7 H D-Dimer Puncture Site ABG pH ABG pCO2 at Pt Temp ABG pO2 at Pt Temp ABG HCO3 ABG O2 Sat (Measured) ABG O2 Content ABG Base Excess Tunde Test O2 Delivery Device Oxygen Flow Rate PEEP Sodium 143 Potassium 4.0 Chloride 108 H Carbon Dioxide 29 D Anion Gap 6 L BUN 21 H Creatinine 0.9 Creat Clearance w eGFR > 60 Random Glucose 118 H D Calcium 8.1 L Total Bilirubin 0.7 AST 20 ALT 24 Alkaline Phosphatase 47 Creatine Kinase Troponin I B-Natriuretic Peptide Total Protein 6.0 L Albumin 3.3 L 08/08/16 05:15 WBC RBC Hgb Hct MCV MCHC RDW Plt Count MPV Neutrophils % Lymphocytes % Monocytes % Eosinophils % Basophils % INR PTT (Actin FS) D-Dimer Puncture Site ABG pH ABG pCO2 at Pt Temp ABG pO2 at Pt Temp ABG HCO3 ABG O2 Sat (Measured) ABG O2 Content ABG Base Excess Tunde Test O2 Delivery Device Oxygen Flow Rate PEEP Sodium Potassium Chloride Carbon Dioxide Anion Gap BUN Creatinine Creat Clearance w eGFR Random Glucose Calcium Total Bilirubin AST ALT Alkaline Phosphatase Creatine Kinase Troponin I 0.39 H D B-Natriuretic Peptide Total Protein Albumin Current Medications Generic Name Dose Route Start Last Admin Trade Name Freq PRN Reason Stop Dose Admin Atorvastatin Calcium 20 mg 08/08/16 22:00 Lipitor - PO HS [facility] Clopidogrel Bisulfate 75 mg 08/08/16 10:00 Plavix - PO DAILY [facility] Enoxaparin Sodium 80 mg 08/08/16 10:00 Lovenox - SQ BID [facility] Guaifenesin 10 ml 08/08/16 09:03 Robitussin - PO Q4H PRN COUGH Metoprolol Succinate 50 mg 08/08/16 10:00 Toprol Xl - PO DAILY [facility] Quinapril HCl 20 mg 08/08/16 10:00 Accupril - PO DAILY [facility] Ranitidine HCl 150 mg 08/08/16 10:00 Zantac - PO DAILY [facility] Terazosin HCl 5 mg 08/08/16 22:00 Hytrin - PO HS [facility] Imaging: Chest X-ray (08/07/16)- no significant interval change or acute lung disease. CTA of the chest (08/07/16)- Positive for diffuse bilateral pulmonary emboli. EKG (08/07/16)- left axis deviation, incomplete right bundle branch block. Echocardiogram (08/08/16)- right ventricular systolic pressure is elevated (30- 40mmhg), mild pulmonary hypertension, and ejection fraction of 42.1%. Ultrasound of lower extremities (08/08/16)- No evidence of Deep vein thrombosis, fully occlusion found superficially in the left greater saphenous vein Assessment and Plan: 76 year old male with past medical hx of CAD with 2 stents, CABG, HTN, HLD, GERD , BPH, presented to the ER with SOB< dry cough and dyspnea. Found to have bilateral pulmonary emboli. 1) Bilateral Pulmonary Emboli - D-dimer elavated at 3682 - BNP elevated at 508 - signs of right sided heart strain evidenced by incomplete RBBB on EKG - wells score of 7.5 designating the patient has high risk - Continue Lovenox 80mg sq BID 2) Elevated troponin level - likely secondary to right sided heart strain - increase from .06 to .39 - continue to monitor patient in ICU with telemetry - awaiting results of echocardiogram 3) CAD - continue plavix 75mg PO daily - metoprolol 50mg PO daily - atorvastatin 20 mg PO QHS 4) HTN -Quinopril 20 mg PO qd 5) BPH terazosin 5mg PO qhs DVT prophylaxis -continue lovonox 80 mg sq BID F/E/N - no IV fluids indicated - cardiac diet
[2016-08-08] MEDS ORDERED: PT OWN MED DRAWER 7, Y5N ONE ×2 (11:36→21:17)
[2016-08-08] MEDS: METOPROLOL SUCCINATE 50 MG TAB.SR.24H (FP) PO SCH (11:38)
[2016-08-08] MEDS: ENOXAPARIN NA (PORCINE) 80 MG/0.8 ML DISP.SYRIN SQ SCH ×2 (11:38→21:25)
[2016-08-08] MEDS: CLOPIDOGREL BISULFATE 75 MG TABLET (FP) PO SCH (11:38)
[2016-08-08] MEDS: RANITIDINE HCL 150 MG TABLET (FP) PO SCH (11:38)
[2016-08-08 13:11] LABS: TROPONIN I 0.38 ng/ml (0.00-0.05)
--- NOTE | 2016-08-08 13:15 | PN ---
Teaching Attending Note Name of Resident: Sindhu Corrales ATTENDING PHYSICIAN STATEMENT I saw and evaluated the patient. I reviewed the resident's note and discussed the case with the resident. I agree with the resident's findings and plan as documented. SUBJECTIVE: Patient seen and examined in the ICU. Awake and alert. No CP or SOB. ECHO performed at bedside : (+) Right heart strain/ Pulmonary HTN / LV dysfunction. Intake & Output 08/05/16 08/06/16 08/07/16 08/08/16 23:59 23:59 23:59 23:59 Intake Total 50 Balance 50 Weight 180 lb 180 lb 12.465 oz Last Vital Signs Temp Pulse Resp BP Pulse Ox 98.4 F 90 22 107/74 93 L 08/08/16 10:00 08/08/16 12:00 08/08/16 12:00 08/08/16 12:00 08/08/16 08:08 Active Medications Atorvastatin Calcium (Lipitor -) 20 mg PO [facility] Clopidogrel Bisulfate (Plavix -) 75 mg PO DAILY [facility] Last Admin: 08/08/16 11:38 Dose: 75 mg Enoxaparin Sodium (Lovenox -) 80 mg SQ BID [facility] Last Admin: 08/08/16 11:38 Dose: 80 mg Guaifenesin (Robitussin -) 10 ml PO Q4H PRN PRN Reason: COUGH Metoprolol Succinate (Toprol Xl -) 50 mg PO DAILY [facility] Last Admin: 08/08/16 11:38 Dose: 50 mg Quinapril HCl (Accupril -) 20 mg PO DAILY [facility] Ranitidine HCl (Zantac -) 150 mg PO DAILY [facility] Last Admin: 08/08/16 11:38 Dose: 150 mg Terazosin HCl (Hytrin -) 5 mg PO [facility] Constitutional: Yes: Awake and alert, NAD Eyes: Yes: EOM Intact HENT: Yes: Normocephalic Neck: Yes: Trachea Midline Cardiovascular: Yes: Tachycardia, S1, S2 Respiratory: Yes: CTA Bilaterally Gastrointestinal: Yes: Normal Bowel Sounds, Soft Extremities: Yes: Erythema, (+) intact Steri-strips on left leg Edema: LLE: 2+, RLE: 1+ Neurological: Yes: Alert, Oriented Labs: Laboratory Results - last 24 hr 08/07/16 08/07/16 08/07/16 23:15 23:15 23:15 WBC 8.8 D RBC 4.50 Hgb 13.4 Hct 40.9 MCV 90.9 MCHC 32.7 RDW 14.0 Plt Count 124 L MPV 9.6 D Neutrophils % 75.5 D Lymphocytes % 14.3 D Monocytes % 8.4 Eosinophils % 1.5 Basophils % 0.3 INR 1.24 H PTT (Actin FS) D-Dimer Puncture Site ABG pH ABG pCO2 at Pt Temp ABG pO2 at Pt Temp ABG HCO3 ABG O2 Sat (Measured) ABG O2 Content ABG Base Excess Tunde Test O2 Delivery Device Oxygen Flow Rate PEEP Sodium 141 Potassium 4.0 Chloride 107 Carbon Dioxide 24 Anion Gap 10 BUN 22 H D Creatinine 1.1 D Creat Clearance w eGFR > 60 Random Glucose 222 H D Calcium 8.6 Total Bilirubin 0.8 D AST 24 D ALT 27 Alkaline Phosphatase 50 D Creatine Kinase Troponin I B-Natriuretic Peptide Total Protein 6.5 Albumin 3.6 08/07/16 08/07/16 08/08/16 23:15 23:15 03:30 WBC RBC Hgb Hct MCV MCHC RDW Plt Count MPV Neutrophils % Lymphocytes % Monocytes % Eosinophils % Basophils % INR PTT (Actin FS) D-Dimer 3682 H Puncture Site Right radial ABG pH 7.43 ABG pCO2 at Pt Temp 33.9 L ABG pO2 at Pt Temp 70.4 ABG HCO3 22.3 ABG O2 Sat (Measured) 93.9 ABG O2 Content 18.0 ABG Base Excess -0.9 Tunde Test Positive O2 Delivery Device Nasal cannula Oxygen Flow Rate 5.0lpm PEEP 0.0 Sodium Potassium Chloride Carbon Dioxide Anion Gap BUN Creatinine Creat Clearance w eGFR Random Glucose Calcium Total Bilirubin AST ALT Alkaline Phosphatase Creatine Kinase 97 Troponin I 0.06 H D B-Natriuretic Peptide 508.70 H Total Protein Albumin 08/08/16 08/08/16 08/08/16 05:15 05:15 05:15 WBC 6.5 RBC 4.30 Hgb 12.8 Hct 38.5 MCV 89.7 MCHC 33.1 RDW 14.0 Plt Count 126 L MPV 8.8 Neutrophils % 66.9 Lymphocytes % 21.6 D Monocytes % 10.5 H Eosinophils % 0.5 Basophils % 0.5 INR PTT (Actin FS) 38.7 H D-Dimer Puncture Site ABG pH ABG pCO2 at Pt Temp ABG pO2 at Pt Temp ABG HCO3 ABG O2 Sat (Measured) ABG O2 Content ABG Base Excess Tunde Test O2 Delivery Device Oxygen Flow Rate PEEP Sodium 143 Potassium 4.0 Chloride 108 H Carbon Dioxide 29 D Anion Gap 6 L BUN 21 H Creatinine 0.9 Creat Clearance w eGFR > 60 Random Glucose 118 H D Calcium 8.1 L Total Bilirubin 0.7 AST 20 ALT 24 Alkaline Phosphatase 47 Creatine Kinase Troponin I B-Natriuretic Peptide Total Protein 6.0 L Albumin 3.3 L 08/08/16 05:15 WBC RBC Hgb Hct MCV MCHC RDW Plt Count MPV Neutrophils % Lymphocytes % Monocytes % Eosinophils % Basophils % INR PTT (Actin FS) D-Dimer Puncture Site ABG pH ABG pCO2 at Pt Temp ABG pO2 at Pt Temp ABG HCO3 ABG O2 Sat (Measured) ABG O2 Content ABG Base Excess Tunde Test O2 Delivery Device Oxygen Flow Rate PEEP Sodium Potassium Chloride Carbon Dioxide Anion Gap BUN Creatinine Creat Clearance w eGFR Random Glucose Calcium Total Bilirubin AST ALT Alkaline Phosphatase Creatine Kinase Troponin I 0.39 H D B-Natriuretic Peptide Total Protein Albumin Problem List - Problems (1) Pulmonary embolism Code(s): I26.99 - OTHER PULMONARY EMBOLISM WITHOUT ACUTE COR PULMONALE Qualifiers: Pulmonary embolism type: other Chronicity: acute (2) CAD (coronary artery disease) Code(s): I25.10 - ATHSCL HEART DISEASE OF [place] CORONARY ARTERY W/O ANG PCTRS (3) Hyperlipidemia Code(s): E78.5 - HYPERLIPIDEMIA, UNSPECIFIED (4) Hypertension Code(s): I10 - ESSENTIAL (PRIMARY) HYPERTENSION Assessment/Plan Full dose AC Consult IR to assess for Catheter directed thrombolysis : does not meet criteria for systemic therapy O2 to maintain saturation >92% Plavix Statin ICU monitoring Dr Pabon Critical care time spent in reviewing chart, evaluating patient and formulating plan 35 min
--- NOTE | 2016-08-08 13:34 | PN ---
Teaching Attending Note Name of Resident: Juan Delgado ATTENDING PHYSICIAN STATEMENT I saw and evaluated the patient. I reviewed the resident's note and discussed the case with the resident. I agree with the resident's findings and plan as documented. SUBJECTIVE: Patient feels short of breath. OBJECTIVE: Vital Signs Period Temp Pulse Resp BP Sys/Callaway Pulse Ox Last 24 Hr 97.3 F-98.4 F 84-110 18-29 107-134/65-83 79-98 HEART: S1S2, RRR LUNGS: Clear ABDOMEN: Soft, non-tender, non-distended, normal BS EXTREMITIES: Bilateral venous stasis changes with trace edema. LLE surgical incision with Steri-strips in place ASSESSMENT AND PLAN: This is a 76 year old man with a history of HTN, hyperlipidemia, CAD, CABG, stents, GERD, BPH, chronic venous stasis, recent LLE vein stripping who presented to the ER with shortness of breath. 1. Bilateral pulmonary emboli - Hemodynamically stable - D-dimer 3682, BNP 508.7, troponin 0.06 -> 0.39 -> 0.38 - Echo shows mildly to moderately reduced LV systolic function, impaired LV relaxation, moderately dilated LA, mild to moderate TR, RVSP 30-40 mmHg, mild pulmonary HTN - Continue Lovenox - IR to evaluate for catheter-directed thrombolysis 2. CAD, history of CABG, stents - Continue Plavix, Toprol XL, Lipitor 3. HTN - Continue Accupril, Toprol XL 4. BPH - Continue Hytrin 5. Hyperlipidemia - Continue Lipitor 6. GERD 7. Chronic venous stasis, recent LLE vein stripping
--- NOTE | 2016-08-08 14:40 | EKG ---
Test Reason : Blood Pressure : / mmHG Vent. Rate : 111 BPM Atrial Rate : 111 BPM P-R Int : 178 ms QRS Dur : 110 ms QT Int : 330 ms P-R-T Axes : 060 -40 090 degrees QTc Int : 448 ms SINUS TACHYCARDIA LEFT AXIS DEVIATION CANNOT RULE OUT SEPTAL INFARCT (CITED ON OR BEFORE 30-JUN-2013) ABNORMAL ECG WHEN COMPARED WITH ECG OF 30-JUN-2013 23:08, VENT. RATE HAS INCREASED Confirmed by NINA CARTER, ELEUTERIO ([id number]) on 08/08/2016 2:39:35 PM Referred By: Confirmed By:ELEUTERIO WOOD MD
[2016-08-08] MEDS: QUINAPRIL HCL 20 MG TABLET (FP) PO SCH (15:31)
[2016-08-08] MEDS: guaiFENesin 200 MG/10 ML 10 ML UNIT-DOSE CUPS PO PRN (17:35)
[2016-08-08] MEDS: ATORVASTATIN CA 20 MG TABLET (FP) PO SCH (21:24)
[2016-08-08] MEDS: TERAZOSIN HCL 5 MG CAPSULE PO SCH (23:32)
[2016-08-09 06:30] LABS: BASOPHIL 0.5 % (0-2.0); EOSINOPHIL 2.3 % (0-4.5); MCH 29.7 pg (25.7-33.7); MCHC 32.8 g/dl (32.0-35.9); MEAN CELL VOLUME 90.6 fl (80-96); MEAN PLT VOLUME 9.7 fl (7.5-11.1); NEUTROPHILS 62.9 % (42.8-82.8); PLATELET COUNT 141 K/MM3 (134-434); WHITE BLOOD COUNT 7.5 K/mm3 (4.0-10.0)
[2016-08-09 06:45] LABS: INR 1.31 (0.82-1.09); PROTHROMBIN TIME (PATIENT) 14.5 SEC (9.98-11.88)
[2016-08-09 07:00] LABS: ANION GAP 7 (8-16); CALCIUM 8.3 mg/dL (8.5-10.1); CO2 26 mmol/L (21-32); GLUCOSE,RANDOM 105 mg/dL (74-106)
[2016-08-09 07:01] LABS: CREATININE 0.9 mg/dL (0.7-1.3)
--- NOTE | 2016-08-09 07:49 | PN ---
Physical Exam: SUBJECTIVE: Patient seen and examined. slept well last night, has sob when he tries to get out of bed or moves around Cry cough continues with fits at times, no hemoptysis or vomiting denies chest pain, abdominal pain, headache. OBJECTIVE: Vital Signs Period Temp Pulse Resp BP Sys/Callaway Pulse Ox Last 24 Hr 98 F-98.6 F 81-96 22-32 91-164/59-79 93-95 GENERAL: The patient is awake, alert, and fully oriented, in no acute distress. EYES: PERRL, extraocular movements intact, sclera anicteric, conjunctiva clear. ENT: nares patent, oropharynx clear without exudates, moist mucous membranes. LUNGS: clear to auscultation bilaterally, no wheezes, no crackles, no accessory muscle use. HEART: Regular rate and rhythm, S1, S2 without murmur, rub or gallop. ABDOMEN: Soft, nontender, nondistended, normoactive bowel sounds, no guarding EXTREMITIES: 2+ dorsalis pedis and radial pulses b/l, warm, well-perfused, no edema. left leg with steri strips in place medially. venous stasis hyperpigmented skin in left lower leg. Laboratory Results - last 24 hr 08/08/16 08/09/16 08/09/16 12:30 05:20 05:20 WBC 7.5 RBC 4.38 Hgb 13.0 Hct 39.7 MCV 90.6 MCHC 32.8 RDW 14.0 Plt Count 141 MPV 9.7 D Neutrophils % 62.9 Lymphocytes % 23.9 Monocytes % 10.4 H Eosinophils % 2.3 D Basophils % 0.5 INR Sodium 141 Potassium 4.0 Chloride 108 H Carbon Dioxide 26 Anion Gap 7 L BUN 20 H Creatinine 0.9 Random Glucose 105 Calcium 8.3 L Creatine Kinase 111 Troponin I 0.38 H 08/09/16 05:20 WBC RBC Hgb Hct MCV MCHC RDW Plt Count MPV Neutrophils % Lymphocytes % Monocytes % Eosinophils % Basophils % INR 1.31 H Sodium Potassium Chloride Carbon Dioxide Anion Gap BUN Creatinine Random Glucose Calcium Creatine Kinase Troponin I Active Medications Generic Name Dose Route Start Last Admin Trade Name Freq PRN Reason Stop Dose Admin Atorvastatin Calcium 20 mg 08/08/16 22:00 08/08/16 21:24 Lipitor - PO 20 mg HS AL Administration Clopidogrel Bisulfate 75 mg 08/08/16 10:00 08/08/16 11:38 Plavix - PO 75 mg DAILY AL Administration Enoxaparin Sodium 80 mg 08/08/16 10:00 08/08/16 21:25 Lovenox - SQ 80 mg BID AL Administration Guaifenesin 10 ml 08/08/16 09:03 08/08/16 17:35 Robitussin - PO 10 ml Q4H PRN Administration COUGH Metoprolol Succinate 50 mg 08/08/16 10:00 08/08/16 11:38 Toprol Xl - PO 50 mg DAILY AL Administration Quinapril HCl 20 mg 08/08/16 10:00 08/08/16 15:31 Accupril - PO 20 mg DAILY AL Administration Ranitidine HCl 150 mg 08/08/16 10:00 08/08/16 11:38 Zantac - PO 150 mg DAILY AL Administration Terazosin HCl 5 mg 08/08/16 22:00 08/08/16 23:32 Hytrin - PO 5 mg HS AL Administration ASSESSMENT/PLAN: 76 year old man with HTN, HLD, CAD s/p PCI stent, CABG and recent left saphaneous embolectomy and presented to ED with cough, found to have elevated d -dimer and admitted to ICU for b/l PE seen on CTA. Cardiovascular NPO at midnight for repeat angiogram tomorrow, - hold lovenox while on TPA continue plavix po daily - hold while on TPA - continue heparin drip with drip protocol HTN controlled with toprol XL 50mg po daily(continue), accupril 20mg po daily ( hold today, restart tomorrow) HLD - lipitor 20mg po HS Pulmonary monitor for signs of respiratory distress maintain on nasal cannula, >92% saturation Guaifenesin AC 10mg po prn q4h for cough likley caused by PE GI Gerd Zantac 150mg po daily terazosin 5mg po HS Hematological - pt does not have personal or family hx of coagulopathy/PE/DVT/cancers(remote hx of likely basal cell cancer removed from his lower lip) , thrombus likely provoked from recent embolectomy/decreased mobility post-procedure. will likely require ac for 3 months as outpatient monitor platelet count, currently 126 DVT: on heparin drip Diet: full liquid diet Visit type - Emergency Visit Emergency Visit: No - New Patient This patient is new to me today: No - Critical Care Critical Care patient: Yes Total Critical Care Time (in minutes): 35 Critical Care Statement: The care of this patient involved high complexity decision making to prevent further life threatening deterioration of the patient 's condition and/or to evalute & treat vital organ system(s) failure or risk of failure.
--- NOTE | 2016-08-09 08:27 | PN ---
Physical Exam: SUBJECTIVE: Patient seen and examined in ICU. He still has shortness of breath but only occurs when coughing. The cough has improved on robitussin, however. Denies chest pain, palpitation, hemoptysis, abd pain, fever or chills. No acute event noted overnight. OBJECTIVE: Vital Signs Period Temp Pulse Resp BP Sys/Callaway Pulse Ox Last 24 Hr 98 F-98.6 F 81-96 22-32 91-164/59-74 93-95 GENERAL: AAO x 3, not in cardiopulmonary distress on 4L NC EYES: PERRLA, sclera anicteric, conjunctiva clear. LUNGS: Fair air entry with rhonchi bilaterally HEART: RRR, S1 and S2 present, no murmur ABDOMEN: Soft, nontender, nondistended, normoactive bowel sounds. EXTREMITIES: chronic venous stasis with hyperpigmentation bilaterally, no edema , +2 symmetrical b/l peripheral pulses CBCD WBC 7.5 K/mm3 (4.0-10.0) 08/09/16 05:20 RBC 4.38 M/mm3 (4.00-5.60) 08/09/16 05:20 Hgb 13.0 GM/dL (11.7-16.9) 08/09/16 05:20 Hct 39.7 % (35.4-49) 08/09/16 05:20 MCV 90.6 fl (80-96) 08/09/16 05:20 MCHC 32.8 g/dl (32.0-35.9) 08/09/16 05:20 RDW 14.0 % (11.9-15.9) 08/09/16 05:20 Plt Count 141 K/MM3 (134-434) 08/09/16 05:20 MPV 9.7 fl (7.5-11.1) D 08/09/16 05:20 CMP Sodium 141 mmol/L (136-145) 08/09/16 05:20 Potassium 4.0 mmol/L (3.5-5.1) 08/09/16 05:20 Chloride 108 mmol/L (98-107) H 08/09/16 05:20 Carbon Dioxide 26 mmol/L (21-32) 08/09/16 05:20 Anion Gap 7 (8-16) L 08/09/16 05:20 BUN 20 mg/dL (7-18) H 08/09/16 05:20 Creatinine 0.9 mg/dL (0.7-1.3) 08/09/16 05:20 Creat Clearance w eGFR > 60 (>60) 08/08/16 05:15 Calcium 8.3 mg/dL (8.5-10.1) L 08/09/16 05:20 Total Bilirubin 0.7 mg/dL (0.2-1.0) 08/08/16 05:15 AST 20 U/L (15-37) 08/08/16 05:15 ALT 24 U/L (12-78) 08/08/16 05:15 Alkaline Phosphatase 47 U/L (45-117) 08/08/16 05:15 Total Protein 6.0 g/dl (6.4-8.2) L 08/08/16 05:15 Albumin 3.3 g/dl (3.4-5.0) L 08/08/16 05:15 Intake & Output 08/06/16 08/07/16 08/08/16 08/09/16 23:59 23:59 23:59 23:59 Intake Total 780 Output Total 1030 250 Balance -250 -250 Weight 81.647 kg 82 kg 80 kg Active Medications Generic Name Dose Route Start Last Admin Trade Name Freq PRN Reason Stop Dose Admin Atorvastatin Calcium 20 mg 08/08/16 22:00 08/08/16 21:24 Lipitor - PO 20 mg HS AL Administration Clopidogrel Bisulfate 75 mg 08/08/16 10:00 08/08/16 11:38 Plavix - PO 75 mg DAILY AL Administration Enoxaparin Sodium 80 mg 08/08/16 10:00 08/08/16 21:25 Lovenox - SQ 80 mg BID AL Administration Guaifenesin 10 ml 08/08/16 09:03 08/08/16 17:35 Robitussin - PO 10 ml Q4H PRN Administration COUGH Metoprolol Succinate 50 mg 08/08/16 10:00 08/08/16 11:38 Toprol Xl - PO 50 mg DAILY AL Administration Quinapril HCl 20 mg 08/08/16 10:00 08/08/16 15:31 Accupril - PO 20 mg DAILY AL Administration Ranitidine HCl 150 mg 08/08/16 10:00 08/08/16 11:38 Zantac - PO 150 mg DAILY AL Administration Terazosin HCl 5 mg 08/08/16 22:00 08/08/16 23:32 Hytrin - PO 5 mg HS AL Administration IMAGING CTA on 08/07: extensive, bilateral pulmonary embolism Lower extremity doppler on 08/08: No DVT. Superficial thrombus in L greater saphenous vein. ECHO on 08/08: Elevated RV pressure and reduced LV function CXR on 08/07: no acute finding EKG on 08/07: Sinus tachycardia @111bpm, L axis deviation, Incomplete RBBB, Septal infarct, age undetermined ASSESSMENT/PLAN: 76 yo M h/o CAD s/p CABG + stents x 2 on plavix and chronic venous stasis s/p vein stripping admitted to the ICU for bilateral PE. Submassive Pulmonary Embolism - Remains hemodynamically stable * maintain MAP > 65 - Confirmed RV strain on ECHO * EKG shows incomplete RBBB * Initially elevated troponins and BNP * Avoid fluids that could cause RV dilation - Catheter directed tPA infusion scheduled today * No absolute or relative contraindication for tPA - Cont. lovenox therapuetic dose of 80mg BID * RIETE score ~ 1-2: low to intermediate bleeding risk from PE anticoagulation - Cont. O2 to maintain sat > 92% Elevated troponins and BNP - Demand ischemia vs. RV strain - Downward trend CAD - Cont. plavix 75mg, metoprolol xl 50mg, atorvastatin 20 mg daily HTN - Cont. quinapril 20 mg daily BPH - Cont. terazosin 5 mg daily FEN - Avoid aggressive hydration - Monitor electrolytes - Liquid diet Prophylaxis - DVT: on lovenox - GI: H2 katie Dispo - Cont. to monitor in ICU Visit type - Emergency Visit Emergency Visit: No - New Patient This patient is new to me today: No - Critical Care Critical Care patient: Yes Total Critical Care Time (in minutes): 45 Critical Care Statement: The care of this patient involved high complexity decision making to prevent further life threatening deterioration of the patient 's condition and/or to evalute & treat vital organ system(s) failure or risk of failure.
[2016-08-09] MEDS: RANITIDINE HCL 150 MG TABLET (FP) PO SCH ×2 (08:51→15:53)
[2016-08-09] MEDS: METOPROLOL SUCCINATE 50 MG TAB.SR.24H (FP) PO SCH ×2 (08:52→14:05)
[2016-08-09] MEDS ORDERED: HEPARIN NA (PORCINE) 5,000 UNITS/ML 1ML VIAL IVPUSH PRN (09:00)
[2016-08-09] MEDS: HEPARIN INFUSION - 500 ML IVPB SCH ×2 (09:28→20:19)
[2016-08-09] MEDS ORDERED: ALTEPLASE 50MG 25 MG in SODIUM CHLORIDE 250 ML IVPB SCH (11:00)
[2016-08-09] MEDS ORDERED: SODIUM CHLORIDE 1,000 ML IV SCH (13:30)
--- NOTE | 2016-08-09 14:12 | PN ---
Teaching Attending Note Name of Resident: Sindhu Corrales ATTENDING PHYSICIAN STATEMENT I saw and evaluated the patient. I reviewed the resident's note and discussed the case with the resident. I agree with the resident's findings and plan as documented. SUBJECTIVE: Pt seen and examined in the ICU. Catheter directed thrombolysis with alteplase infusing. Denies shortness of breath or chest pain. OBJECTIVE: Last Vital Signs Temp Pulse Resp BP Pulse Ox 98.5 F 70 19 96/84 94 L 08/09/16 13:42 08/09/16 13:42 08/09/16 13:40 08/09/16 13:40 08/09/16 13:40 Intake & Output 08/06/16 08/07/16 08/08/16 08/09/16 23:59 23:59 23:59 23:59 Intake Total 780 Output Total 1030 250 Balance -250 -250 Weight 180 lb 180 lb 12.465 oz 176 lb 5.917 oz Gen: NAD at rest Heart: RRR Lung: decreased breath sounds at the bases Abd: soft, nontender Ext: no edema CBC, BMP 08/09/16 05:20 08/09/16 05:20 Active Medications Atorvastatin Calcium (Lipitor -) 20 mg PO HS AL Last Admin: 08/08/16 21:24 Dose: 20 mg Clopidogrel Bisulfate (Plavix -) 75 mg PO DAILY AL Last Admin: 08/08/16 11:38 Dose: 75 mg Guaifenesin (Robitussin -) 10 ml PO Q4H PRN PRN Reason: COUGH Last Admin: 08/08/16 17:35 Dose: 10 ml Heparin Sodium (Porcine) (Heparin -) 1,000 unit IVPUSH PRN PRN PRN Reason: Heparin Heparin Sodium (Porcine) (Heparin -) 5,000 unit IVPUSH PRN PRN PRN Reason: Heparin Heparin Sodium/Dextrose (Heparin Infusion -) 500 mls @ 20 mls/hr IVPB TITR AL ; 1,000 UNITS/HR PRN Reason: Protocol Last Titration: 08/09/16 12:48 Dose: 500 units/hr Alteplase, Recombinant 25 mg/ (Sodium Chloride) 250 mls @ 5 mls/hr IVPB Q24H AL Stop: 08/10/16 10:59 Last Admin: 08/09/16 12:48 Dose: 5 mls/hr Alteplase, Recombinant 25 mg/ (Sodium Chloride) 250 mls @ 5 mls/hr IVPB Q24H [facility] Stop: 08/10/16 10:59 Last Admin: 08/09/16 12:47 Dose: 5 mls/hr Sodium Chloride (Normal Saline -) 1,000 mls @ 75 mls/hr IV ASDIR [facility] Stop: 08/09/16 21:29 Last Admin: 08/09/16 14:03 Dose: 75 mls/hr Metoprolol Succinate (Toprol Xl -) 50 mg PO DAILY [facility] Last Admin: 08/09/16 14:05 Dose: Not Given Quinapril HCl (Accupril -) 20 mg PO DAILY [facility] Last Admin: 08/08/16 15:31 Dose: 20 mg Ranitidine HCl (Zantac -) 150 mg PO DAILY [facility] Last Admin: 08/09/16 08:51 Dose: 150 mg Terazosin HCl (Hytrin -) 5 mg PO HS [facility] Last Admin: 08/08/16 23:32 Dose: 5 mg ASSESSMENT AND PLAN: Pulmonary Emboli Pulmonary HTN LV Systolic/Diastolic Dysfuntion CAD s/p CABG HTN GERD BPH - continue catheter directed thrombolysis - IVF - continue anticoagulatoin - O2 to keep SpO2 >90% - continue cardiac meds - ICU monitoring while on tPA
--- NOTE | 2016-08-09 14:44 | MSN ---
Progress Note (short form) - Note Progress Note: Subjective: Patient was seen by me at the bedside. The patient stated that his cough is unchanged from previous days. The patient continues to deny any sputum, chest pain, or headache. The patient stated that his cough is worse when moving around , taking deep breathes and with prolonged talking. The patient also denies any nauseas vomiting, fever or chills. The patient has been placed on NPO diet but was previously tolerating solids and liquids. The patient complains of constipation but has been urinating regularly. Vital Signs Period Temp Pulse Resp BP Sys/Callaway Pulse Ox Last 24 Hr 98 F-98.8 F 70-96 18-32 91-131/59-84 93-100 Exam: Gen- alert and oriented, in no acute distress heart- regular rate and rhythm, normal S1 and S2, no murmurs, rubs, or gallops lungs- clear to auscultation bilaterally in all lung mayes Extremities- 4/5 muscle strength and 2/4 pulses with intact sensation in all extremities, no swelling or peripheral edema. Abdomen- no guarding or distension, normoactive bowel sounds, no tenderness to palpation in all four quadrants. Laboratory Results - last 24 hr 08/09/16 08/09/16 08/09/16 05:20 05:20 05:20 WBC 7.5 RBC 4.38 Hgb 13.0 Hct 39.7 MCV 90.6 MCHC 32.8 RDW 14.0 Plt Count 141 MPV 9.7 D Neutrophils % 62.9 Lymphocytes % 23.9 Monocytes % 10.4 H Eosinophils % 2.3 D Basophils % 0.5 INR 1.31 H Sodium 141 Potassium 4.0 Chloride 108 H Carbon Dioxide 26 Anion Gap 7 L BUN 20 H Creatinine 0.9 Random Glucose 105 Calcium 8.3 L Blood Type Antibody Screen 08/09/16 08/09/16 09:20 09:32 WBC RBC Hgb Hct MCV MCHC RDW Plt Count MPV Neutrophils % Lymphocytes % Monocytes % Eosinophils % Basophils % INR Sodium Potassium Chloride Carbon Dioxide Anion Gap BUN Creatinine Random Glucose Calcium Blood Type O NEGATIVE O NEGATIVE Antibody Screen Negative Current Medications Generic Name Dose Route Start Last Admin Trade Name Freq PRN Reason Stop Dose Admin Atorvastatin Calcium 20 mg 08/08/16 22:00 08/08/16 21:24 Lipitor - PO 20 mg HS AL Administration Clopidogrel Bisulfate 75 mg 08/08/16 10:00 08/08/16 11:38 Plavix - PO 75 mg DAILY AL Administration Guaifenesin 10 ml 08/08/16 09:03 08/08/16 17:35 Robitussin - PO 10 ml Q4H PRN Administration COUGH Heparin Sodium (Porcine) 1,000 unit 08/09/16 09:00 Heparin - IVPUSH PRN PRN Heparin Heparin Sodium (Porcine) 5,000 unit 08/09/16 09:00 Heparin - IVPUSH PRN PRN Heparin Heparin Sodium/Dextrose 500 mls @ 20 mls/hr 08/09/16 09:00 08/09/16 12:48 Heparin Infusion - IVPB 500 units/hr TITR AL Titration Protocol 1,000 UNITS/HR Alteplase, Recombinant 25 mg/ 250 mls @ 5 mls/hr 08/09/16 11:00 08/09/16 12:48 Sodium Chloride IVPB 08/10/16 10:59 5 mls/hr Q24H AL Administration Alteplase, Recombinant 25 mg/ 250 mls @ 5 mls/hr 08/09/16 11:00 08/09/16 12:47 Sodium Chloride IVPB 08/10/16 10:59 5 mls/hr Q24H AL Administration Sodium Chloride 1,000 mls @ 75 mls/hr 08/09/16 13:30 08/09/16 14:03 Normal Saline - IV 08/09/16 21:29 75 mls/hr ASDIR AL Administration Metoprolol Succinate 50 mg 08/08/16 10:00 08/09/16 14:05 Toprol Xl - PO Not Given DAILY AL Quinapril HCl 20 mg 08/08/16 10:00 08/08/16 15:31 Accupril - PO 20 mg DAILY AL Administration Ranitidine HCl 150 mg 08/08/16 10:00 08/09/16 08:51 Zantac - PO 150 mg DAILY AL Administration Terazosin HCl 5 mg 08/08/16 22:00 08/08/16 23:32 Hytrin - PO 5 mg HS AL Administration Imaging: Chest X-ray (08/07/16)- no significant interval change or acute lung disease. CTA of the chest (08/07/16)- Positive for diffuse bilateral pulmonary emboli. EKG (08/07/16)- left axis deviation, incomplete right bundle branch block. Echocardiogram (08/08/16)- right ventricular systolic pressure is elevated (30- 40mmhg), mild pulmonary hypertension, and ejection fraction of 42.1%. Ultrasound of lower extremities (08/08/16)- No evidence of Deep vein thrombosis, fully occlusion found superficially in the left greater saphenous vein Assessment and Plan: 76 year old male with past medical hx of CAD with 2 stents, CABG, HTN, HLD, GERD , BPH, presented to the ER with SOB< dry cough and dyspnea. Found to have bilateral pulmonary emboli. 1) Bilateral Pulmonary Emboli - status post embolectomy and TPA infusion - continue alteplase 250 mls @5mls/hr - contiue heparin 500 mls @ 20 mls/hr IVBP - previous D-dimer elavated at 3682 - previous BNP elevated at 508 - signs of right sided heart strain evidenced by incomplete RBBB on EKG - wells score of 7.5 designating the patient has high risk 2) Elevated troponin level - likely secondary to right sided heart strain - increase from .06 to .39 - continue to monitor patient in ICU with telemetry - echocardiography showed right ventricular systolic pressure is elevated (30- 40mmhg), mild pulmonary hypertension, and ejection fraction of 42.1%. 3) CAD - continue clopidegrol 75mg PO daily - metoprolol 50mg PO daily - atorvastatin 20 mg PO QHS 4) HTN -Quinopril 20 mg PO qd 5) BPH - terazosin 5mg PO qhs DVT prophylaxis -continue lovonox 80 mg sq BID F/E/N - no IV fluids indicated - restart cardiac diet after embolectomy
--- NOTE | 2016-08-09 17:26 | PN ---
Teaching Attending Note Name of Resident: Juan Delgado ATTENDING PHYSICIAN STATEMENT I saw and evaluated the patient. I reviewed the resident's note and discussed the case with the resident. I agree with the resident's findings and plan as documented. SUBJECTIVE: Patient feels less short of breath. OBJECTIVE: Vital Signs Period Temp Pulse Resp BP Sys/Callaway Pulse Ox Last 24 Hr 98 F-98.8 F 70-96 18-32 91-131/40-84 93-100 HEART: S1S2, RRR LUNGS: Clear ABDOMEN: Soft, non-tender, non-distended, normal BS EXTREMITIES: Bilateral venous stasis changes with trace edema. LLE surgical incision with Steri-strips in place ASSESSMENT AND PLAN: This is a 76 year old man with a history of HTN, hyperlipidemia, CAD, CABG, stents, GERD, BPH, chronic venous stasis, recent LLE vein stripping who presented to the ER with shortness of breath. 1. Acute hypoxic respiratory failure secondary to bilateral pulmonary emboli - Catheter-directed thrombolysis with Alteplase in progress - Continue oxygen 2. CAD, history of CABG, stents - Continue Toprol XL, Lipitor - Plavix on hold 3. HTN - Continue Accupril, Toprol XL 4. BPH - Continue Hytrin 5. Hyperlipidemia - Continue Lipitor 6. GERD 7. Chronic venous stasis, recent LLE vein stripping
[2016-08-09] MEDS: HEPARIN NA (PORCINE) 5,000 UNITS/ML 1ML VIAL IVPUSH PRN (20:18)
[2016-08-09] MEDS ORDERED: PT OWN MED DRAWER 7, Y5N ONE (22:21)
[2016-08-09] MEDS: ATORVASTATIN CA 20 MG TABLET (FP) PO SCH (22:24)
[2016-08-09] MEDS: TERAZOSIN HCL 5 MG CAPSULE PO SCH (22:24)
[2016-08-10 02:32] LABS: URINE APPEARANCE CLEAR; URINE BILIRUBIN NEGATIVE (NEGATIVE); URINE COLOR YELLOW; URINE GLUCOSE (UA) NEGATIVE (NEGATIVE); URINE KETONE NEGATIVE (NEGATIVE); URINE LEUK ESTERASE NEGATIVE (NEGATIVE); URINE NITRITE NEGATIVE (NEGATIVE); URINE PROTEIN NEGATIVE (NEGATIVE); URINE UROBILINOGEN NEGATIVE E.U./dl (0.2-1.0)
[2016-08-10 02:35] LABS: URINE BLOOD 1+ (NEGATIVE)
[2016-08-10 02:41] LABS: URINE MUCUS FEW; URINE RBC 6 /hpf (0-3); URINE WBC 1 /hpf (3-5)
[2016-08-10] MEDS: guaiFENesin/CODEINE 5 ML UNIT-DOSE CUPS PO PRN ×2 (02:44→22:31)
[2016-08-10 06:53] LABS: BASOPHIL 0.4 % (0-2.0); EOSINOPHIL 2.7 % (0-4.5); MCH 30.1 pg (25.7-33.7); MCHC 33.7 g/dl (32.0-35.9); MEAN CELL VOLUME 89.1 fl (80-96); MEAN PLT VOLUME 9.3 fl (7.5-11.1); NEUTROPHILS 65.7 % (42.8-82.8); PLATELET COUNT 104 K/MM3 (134-434); RDW 13.8 % (11.9-15.9); WHITE BLOOD COUNT 6.9 K/mm3 (4.0-10.0)
[2016-08-10 07:24] LABS: ANION GAP 8 (8-16); CALCIUM 7.8 mg/dL (8.5-10.1); CO2 26 mmol/L (21-32); CREATININE 0.8 mg/dL (0.7-1.3); GLUCOSE,RANDOM 103 mg/dL (74-106)
[2016-08-10] MEDS ORDERED: PT OWN MED DRAWER 7, Y5N ONE ×2 (09:04→20:51)
[2016-08-10] MEDS: RANITIDINE HCL 150 MG TABLET (FP) PO SCH (09:21)
[2016-08-10] MEDS: METOPROLOL SUCCINATE 50 MG TAB.SR.24H (FP) PO SCH (09:21)
[2016-08-10] MEDS: HEPARIN INFUSION - 500 ML IVPB SCH ×2 (09:22→22:42)
--- NOTE | 2016-08-10 10:40 | MSN ---
Progress Note (short form) - Note Progress Note: Subjective: Patient was examined by me at the bedside. Patient stated that he felt like his cough was getting better. He is still having coughing exacerbations but he feels that they are getting shorter in duration and are less intense then previously experienced. He denies any sputum production or pain with coughing. His only new complaint is constipation, although he has been eating and drinking without problem and urinating regularly. Patient denies any chest pain , nausea, vomiting, fever chills, or headache. Vital Signs Period Temp Pulse Resp BP Sys/Callaway Pulse Ox Last 24 Hr 98 F-101.0 F 70-82 18-28 92-131/40-84 93-100 Exam: General- alert and oriented in no distress. Heart- regular rate and rhythm, normal S1 and S2, no murmurs, rubs or gallops. Lungs- Rhonchi could be heard in all lung mayes made worse with deep inspiration Extremities- 4/5 muscle strength, 2/4 pulse and intact sensation with no swelling or peripheral edema. Redness in both legs that are unchanged from baseline. Abdomen- no guarding or distention, normoactive bowel sounds, and no tenderness to palpation in any of the four quadrants. Laboratory Results - last 24 hr 08/09/16 08/09/16 08/09/16 09:20 09:32 18:15 WBC RBC Hgb Hct MCV MCHC RDW Plt Count MPV Neutrophils % Lymphocytes % Monocytes % Eosinophils % Basophils % PTT (Actin FS) 38.4 H Sodium Potassium Chloride Carbon Dioxide Anion Gap BUN Creatinine Random Glucose Calcium Urine Color Urine Appearance Urine pH Ur Specific [place] Urine Protein Urine Glucose (UA) Urine Ketones Urine Blood Urine Nitrite Urine Bilirubin Urine Urobilinogen Ur Leukocyte Esterase Urine RBC Urine WBC Ur Epithelial Cells Urine Mucus Blood Type O NEGATIVE O NEGATIVE Antibody Screen Negative 08/09/16 08/10/16 08/10/16 22:00 02:17 05:20 WBC RBC Hgb Hct MCV MCHC RDW Plt Count MPV Neutrophils % Lymphocytes % Monocytes % Eosinophils % Basophils % PTT (Actin FS) 52.5 H D Sodium 138 Potassium 4.0 Chloride 104 Carbon Dioxide 26 Anion Gap 8 BUN 18 Creatinine 0.8 Random Glucose 103 Calcium 7.8 L Urine Color Yellow Urine Appearance Clear Urine pH 5.[address] [place] 1.015 Urine Protein Negative Urine Glucose (UA) Negative Urine Ketones Negative Urine Blood 1+ H Urine Nitrite Negative Urine Bilirubin Negative Urine Urobilinogen Negative Ur Leukocyte Esterase Negative Urine RBC 6 Urine WBC 1 Ur Epithelial Cells Rare Urine Mucus Few Blood Type Antibody Screen 08/10/16 05:20 WBC 6.9 RBC 4.24 Hgb 12.7 Hct 37.8 MCV 89.1 MCHC 33.7 RDW 13.8 Plt Count 104 L D MPV 9.3 Neutrophils % 65.7 Lymphocytes % 19.9 Monocytes % 11.3 H Eosinophils % 2.7 Basophils % 0.4 PTT (Actin FS) Sodium Potassium Chloride Carbon Dioxide Anion Gap BUN Creatinine Random Glucose Calcium Urine Color Urine Appearance Urine pH Ur Specific [place] Urine Protein Urine Glucose (UA) Urine Ketones Urine Blood Urine Nitrite Urine Bilirubin Urine Urobilinogen Ur Leukocyte Esterase Urine RBC Urine WBC Ur Epithelial Cells Urine Mucus Blood Type Antibody Screen Current Medications Generic Name Dose Route Start Last Admin Trade Name Freq PRN Reason Stop Dose Admin Atorvastatin Calcium 20 mg 08/08/16 22:00 08/09/16 22:24 Lipitor - PO 20 mg HS AL Administration Clopidogrel Bisulfate 75 mg 08/08/16 10:00 08/08/16 11:38 Plavix - PO 75 mg DAILY AL Administration Guaifenesin 10 ml 08/08/16 09:03 08/08/16 17:35 Robitussin - PO 10 ml Q4H PRN Administration COUGH Guaifenesin/Codeine Phosphate 5 ml 08/09/16 20:28 08/10/16 02:44 Robitussin Ac - PO 5 ml Q6H PRN Administration COUGH Heparin Sodium (Porcine) 1,000 unit 08/09/16 09:00 Heparin - IVPUSH PRN PRN Heparin Heparin Sodium (Porcine) 5,000 unit 08/09/16 09:00 08/09/16 20:18 Heparin - IVPUSH 5,000 unit PRN PRN Administration Heparin Heparin Sodium/Dextrose 500 mls @ 20 mls/hr 08/09/16 09:00 08/10/16 09:22 Heparin Infusion - IVPB 13 mls/hr TITR AL Administration Protocol 1,000 UNITS/HR Alteplase, Recombinant 25 mg/ 250 mls @ 5 mls/hr 08/09/16 11:00 08/09/16 12:48 Sodium Chloride IVPB 08/10/16 10:59 5 mls/hr Q24H AL Administration Alteplase, Recombinant 25 mg/ 250 mls @ 5 mls/hr 08/09/16 11:00 08/09/16 12:47 Sodium Chloride IVPB 08/10/16 10:59 5 mls/hr Q24H AL Administration Metoprolol Succinate 50 mg 08/08/16 10:00 08/10/16 09:21 Toprol Xl - PO 50 mg DAILY AL Administration Quinapril HCl 20 mg 08/08/16 10:00 08/08/16 15:31 Accupril - PO 20 mg DAILY AL Administration Ranitidine HCl 150 mg 08/08/16 10:00 08/10/16 09:21 Zantac - PO 150 mg DAILY AL Administration Terazosin HCl 5 mg 08/08/16 22:00 08/09/16 22:24 Hytrin - PO 5 mg HS AL Administration Imaging: Chest X-ray (08/07/16)- no significant interval change or acute lung disease. CTA of the chest (08/07/16)- Positive for diffuse bilateral pulmonary emboli. EKG (08/07/16)- left axis deviation, incomplete right bundle branch block. Echocardiogram (08/08/16)- right ventricular systolic pressure is elevated (30- 40mmhg), mild pulmonary hypertension, and ejection fraction of 42.1%. Ultrasound of lower extremities (08/08/16)- No evidence of Deep vein thrombosis, fully occlusion found superficially in the left greater saphenous vein Assessment and Plan: 76 year old male with past medical hx of CAD with 2 stents, CABG, HTN, HLD, GERD , BPH, presented to the ER with SOB< dry cough and dyspnea. Found to have bilateral pulmonary emboli. 1) Bilateral Pulmonary Emboli - status post embolysis with TPA infusion in progress - continue alteplase 250 mls @5mls/hr - continue heparin 500 mls @ 20 mls/hr IVBP - awaiting interventional radiology revaluation and embolysis removal - will continue clopidegril 75 mg po dialy once alteplase is D/C - will restart lovonox 80 mg sq BID once heparin drip D/c - previous D-dimer elevated at 3682 - previous BNP elevated at 508 - signs of right sided heart strain evidenced by incomplete RBBB on EKG - wells score of 7.5 designating the patient has high risk 2) Elevated troponin level - likely secondary to right sided heart strain - increase from .06 to .39 - continue to monitor patient in ICU with telemetry - echocardiography showed right ventricular systolic pressure is elevated (30- 40mmhg), mild pulmonary hypertension, and ejection fraction of 42.1%. 3) CAD - clopidegrol 75mg PO daily on hold - metoprolol 50mg PO daily - atorvastatin 20 mg PO QHS 4) HTN -Quinopril 20 mg PO qd 5) BPH - terazosin 5mg PO qhs DVT prophylaxis -hold lovonox 80 mg sq BID -heparin 500 mls @ 20mls/hr IVBP F/E/N - no IV fluids indicated - continue cardiac diet
--- NOTE | 2016-08-10 11:13 | PN ---
Physical Exam: SUBJECTIVE: Patient seen and examined in ICU. c/o cough and pain at catheter site. Bowel movement and urination are regular. Denies chest pain, palpitation, hemoptysis, abd pain, fever or chills. No acute event noted overnight. OBJECTIVE: Vital Signs Period Temp Pulse Resp BP Sys/[place] Pulse Ox Last 24 Hr 98 F-101.0 F 70-82 18-28 92-131/40-84 93-100 GENERAL: AAO x 3, not in cardiopulmonary distress on 4L NC EYES: PERRLA, sclera anicteric, conjunctiva clear. LUNGS: Fair air entry with rhonchi bilaterally HEART: RRR, S1 and S2 present, no murmur ABDOMEN: Soft, nontender, nondistended, normoactive bowel sounds. EXTREMITIES: chronic venous stasis with hyperpigmentation bilaterally, no edema , +2 symmetrical b/l peripheral pulses CBCD WBC 6.9 K/mm3 (4.0-10.0) 08/10/16 05:20 RBC 4.24 M/mm3 (4.00-5.60) 08/10/16 05:20 Hgb 12.7 GM/dL (11.7-16.9) 08/10/16 05:20 Hct 37.8 % (35.4-49) 08/10/16 05:20 MCV 89.1 fl (80-96) 08/10/16 05:20 MCHC 33.7 g/dl (32.0-35.9) 08/10/16 05:20 RDW 13.8 % (11.9-15.9) 08/10/16 05:20 Plt Count 104 K/MM3 (134-434) L D 08/10/16 05:20 MPV 9.3 fl (7.5-11.1) 08/10/16 05:20 CMP Sodium 138 mmol/L (136-145) 08/10/16 05:20 Potassium 4.0 mmol/L (3.5-5.1) 08/10/16 05:20 Chloride 104 mmol/L (98-107) 08/10/16 05:20 Carbon Dioxide 26 mmol/L (21-32) 08/10/16 05:20 Anion Gap 8 (8-16) 08/10/16 05:20 BUN 18 mg/dL (7-18) 08/10/16 05:20 Creatinine 0.8 mg/dL (0.7-1.3) 08/10/16 05:20 Creat Clearance w eGFR > 60 (>60) 08/08/16 05:15 Calcium 7.8 mg/dL (8.5-10.1) L 08/10/16 05:20 Total Bilirubin 0.7 mg/dL (0.2-1.0) 08/08/16 05:15 AST 20 U/L (15-37) 08/08/16 05:15 ALT 24 U/L (12-78) 08/08/16 05:15 Alkaline Phosphatase 47 U/L (45-117) 08/08/16 05:15 Total Protein 6.0 g/dl (6.4-8.2) L 08/08/16 05:15 Albumin 3.3 g/dl (3.4-5.0) L 08/08/16 05:15 Intake & Output 08/07/16 08/08/16 08/09/16 08/10/16 23:59 23:59 23:59 23:59 Intake Total 651 912 5309 Output Total 1030 950 200 Balance -250 -510 870 Weight 81.647 kg 82 kg 80 kg 80 kg Active Medications Generic Name Dose Route Start Last Admin Trade Name Freq PRN Reason Stop Dose Admin Atorvastatin Calcium 20 mg 08/08/16 22:00 08/09/16 22:24 Lipitor - PO 20 mg HS AL Administration Clopidogrel Bisulfate 75 mg 08/08/16 10:00 08/08/16 11:38 Plavix - PO 75 mg DAILY AL Administration Guaifenesin 10 ml 08/08/16 09:03 08/08/16 17:35 Robitussin - PO 10 ml Q4H PRN Administration COUGH Guaifenesin/Codeine Phosphate 5 ml 08/09/16 20:28 08/10/16 02:44 Robitussin Ac - PO 5 ml Q6H PRN Administration COUGH Heparin Sodium (Porcine) 1,000 unit 08/09/16 09:00 Heparin - IVPUSH PRN PRN Heparin Heparin Sodium (Porcine) 5,000 unit 08/09/16 09:00 08/09/16 20:18 Heparin - IVPUSH 5,000 unit PRN PRN Administration Heparin Heparin Sodium/Dextrose 500 mls @ 20 mls/hr 08/09/16 09:00 08/10/16 09:22 Heparin Infusion - IVPB 13 mls/hr TITR AL Administration Protocol 1,000 UNITS/HR Metoprolol Succinate 50 mg 08/08/16 10:00 08/10/16 09:21 Toprol Xl - PO 50 mg DAILY AL Administration Quinapril HCl 20 mg 08/08/16 10:00 08/08/16 15:31 Accupril - PO 20 mg DAILY AL Administration Ranitidine HCl 150 mg 08/08/16 10:00 08/10/16 09:21 Zantac - PO 150 mg DAILY AL Administration Terazosin HCl 5 mg 08/08/16 22:00 08/09/16 22:24 Hytrin - PO 5 mg HS AL Administration IMAGING CTA on 08/07: extensive, bilateral pulmonary embolism Lower extremity doppler on 08/08: No DVT. Superficial thrombus in L greater saphenous vein. ECHO on 08/08: Elevated RV pressure and reduced LV function CXR on 08/07: no acute finding EKG on 08/07: Sinus tachycardia @111bpm, L axis deviation, Incomplete RBBB, Septal infarct, age undetermined ASSESSMENT/PLAN: 76 yo M h/o CAD s/p CABG + stents x 2 on plavix and chronic venous stasis s/p vein stripping admitted to the ICU for bilateral PE. Submassive Pulmonary Embolism, s/p tPA - Remains hemodynamically stable * maintain MAP > 65 and sat > 92% - Will start NOAC (eliquis 5mg BID) once tPA infusion is stopped - Monitor sign of bleeding Elevated troponins and BNP - Demand ischemia vs. RV strain - Downward trend CAD - Cont. metoprolol xl 50mg, atorvastatin 20 mg daily - Plavix held HTN - Cont. quinapril 20 mg daily BPH - Cont. terazosin 5 mg daily FEN - IVF not indicated - Monitor electrolytes - Will resume liquid diet Prophylaxis - DVT: on lovenox - GI: H2 katie Dispo - May transfer to tele tomorrow Visit type - Emergency Visit Emergency Visit: No - New Patient This patient is new to me today: No - Critical Care Critical Care patient: Yes Total Critical Care Time (in minutes): 35 Critical Care Statement: The care of this patient involved high complexity decision making to prevent further life threatening deterioration of the patient 's condition and/or to evalute & treat vital organ system(s) failure or risk of failure.
--- NOTE | 2016-08-10 11:23 | PN ---
Teaching Attending Note Name of Resident: Juan Delgado ATTENDING PHYSICIAN STATEMENT I saw and evaluated the patient. I reviewed the resident's note and discussed the case with the resident. I agree with the resident's findings and plan as documented. SUBJECTIVE: Patient has no complaints. He had temp 101.0 this morning. OBJECTIVE: Vital Signs Period Temp Pulse Resp BP Sys/[place] Pulse Ox Last 24 Hr 98 F-101.0 F 70-82 18-28 92-131/40-84 93-100 HEART: S1S2, RRR LUNGS: Scattered rhonchi ABDOMEN: Soft, non-tender, non-distended, normal BS EXTREMITIES: Bilateral venous stasis changes. No edema. LLE surgical incision with Steri-strips in place ASSESSMENT AND PLAN: This is a 76 year old man with a history of HTN, hyperlipidemia, CAD, CABG, stents, GERD, BPH, chronic venous stasis, recent LLE vein stripping who presented to the ER with shortness of breath. 1. Acute hypoxic respiratory failure secondary to bilateral pulmonary emboli - Catheter-directed thrombolysis with Alteplase in progress - Continue oxygen 2. CAD, history of CABG, stents - Continue Toprol XL, Lipitor - Plavix on hold 3. HTN - Continue Accupril, Toprol XL 4. BPH - Continue Hytrin 5. Hyperlipidemia - Continue Lipitor 6. GERD 7. Chronic venous stasis, recent LLE vein stripping
[2016-08-10] MEDS: guaiFENesin 200 MG/10 ML 10 ML UNIT-DOSE CUPS PO PRN (12:59)
--- NOTE | 2016-08-10 13:02 | PN ---
Teaching Attending Note Name of Resident: Sindhu Corrales ATTENDING PHYSICIAN STATEMENT I saw and evaluated the patient. I reviewed the resident's note and discussed the case with the resident. I agree with the resident's findings and plan as documented. SUBJECTIVE: Patient seen and examined in the ICU. Awake and alert. No CP or SOB. tPA and IV Heparin infusing via the R IJ catheter No occult bleeding Intake & Output 08/07/16 08/08/16 08/09/16 08/10/16 23:59 23:59 23:59 23:59 Intake Total 991 506 5139 Output Total 1030 950 200 Balance -250 -510 870 Weight 180 lb 180 lb 12.465 oz 176 lb 5.917 oz 176 lb 5.917 oz Last Vital Signs Temp Pulse Resp BP Pulse Ox 101.0 F H 77 18 122/72 100 08/10/16 10:27 08/10/16 12:29 08/10/16 12:29 08/10/16 12:29 08/10/16 12:29 Active Medications Atorvastatin Calcium (Lipitor -) 20 mg PO HS AL Last Admin: 08/09/16 22:24 Dose: 20 mg Clopidogrel Bisulfate (Plavix -) 75 mg PO DAILY [facility] Last Admin: 08/08/16 11:38 Dose: 75 mg Guaifenesin (Robitussin -) 10 ml PO Q4H PRN PRN Reason: COUGH Last Admin: 08/10/16 12:59 Dose: 10 ml Guaifenesin/Codeine Phosphate (Robitussin Ac -) 5 ml PO Q6H PRN PRN Reason: COUGH Last Admin: 08/10/16 02:44 Dose: 5 ml Heparin Sodium (Porcine) (Heparin -) 1,000 unit IVPUSH PRN PRN PRN Reason: Heparin Heparin Sodium (Porcine) (Heparin -) 5,000 unit IVPUSH PRN PRN PRN Reason: Heparin Last Admin: 08/09/16 20:18 Dose: 5,000 unit Heparin Sodium/Dextrose (Heparin Infusion -) 500 mls @ 20 mls/hr IVPB TITR AL ; 1,000 UNITS/HR PRN Reason: Protocol Last Admin: 08/10/16 09:22 Dose: 13 mls/hr Metoprolol Succinate (Toprol Xl -) 50 mg PO DAILY AL Last Admin: 06/22/17 09:21 Dose: 50 mg Quinapril HCl (Accupril -) 20 mg PO DAILY [facility] Last Admin: 08/08/16 15:31 Dose: 20 mg Ranitidine HCl (Zantac -) 150 mg PO DAILY [facility] Last Admin: 08/10/16 09:21 Dose: 150 mg Terazosin HCl (Hytrin -) 5 mg PO HS [facility] Last Admin: 08/09/16 22:24 Dose: 5 mg Constitutional: Yes: Awake and alert, NAD Eyes: Yes: EOM Intact HENT: Yes: Normocephalic Neck: Yes: Trachea Midline Cardiovascular: Yes: Tachycardia, S1, S2 Respiratory: Yes: CTA Bilaterally Gastrointestinal: Yes: Normal Bowel Sounds, Soft Extremities: Yes: Erythema, (+) intact Steri-strips on left leg Edema: LLE: 2+, RLE: 1+ Neurological: Yes: Alert, Oriented Labs: Laboratory Results - last 24 hr 08/09/16 08/09/16 08/10/16 18:15 22:00 02:17 WBC RBC Hgb Hct MCV MCHC RDW Plt Count MPV Neutrophils % Lymphocytes % Monocytes % Eosinophils % Basophils % PTT (Actin FS) 38.4 H 52.5 H D Sodium Potassium Chloride Carbon Dioxide Anion Gap BUN Creatinine Random Glucose Calcium Urine Color Yellow Urine Appearance Clear Urine pH 5.0 Ur Specific [place] 1.015 Urine Protein Negative Urine Glucose (UA) Negative Urine Ketones Negative Urine Blood 1+ H Urine Nitrite Negative Urine Bilirubin Negative Urine Urobilinogen Negative Ur Leukocyte Esterase Negative Urine RBC 6 Urine WBC 1 Ur Epithelial Cells Rare Urine Mucus Few 08/10/16 08/10/16 05:20 05:20 WBC 6.9 RBC 4.24 Hgb 12.7 Hct 37.8 MCV 89.1 MCHC 33.7 RDW 13.8 Plt Count 104 L D MPV 9.3 Neutrophils % 65.7 Lymphocytes % 19.9 Monocytes % 11.3 H Eosinophils % 2.7 Basophils % 0.4 PTT (Actin FS) Sodium 138 Potassium 4.0 Chloride 104 Carbon Dioxide 26 Anion Gap 8 BUN 18 Creatinine 0.8 Random Glucose 103 Calcium 7.8 L Urine Color Urine Appearance Urine pH Ur Specific [place] Urine Protein Urine Glucose (UA) Urine Ketones Urine Blood Urine Nitrite Urine Bilirubin Urine Urobilinogen Ur Leukocyte Esterase Urine RBC Urine WBC Ur Epithelial Cells Urine Mucus Problem List - Problems (1) Pulmonary embolism Code(s): I26.99 - OTHER PULMONARY EMBOLISM WITHOUT ACUTE COR PULMONALE Qualifiers: Pulmonary embolism type: other Chronicity: acute (2) CAD (coronary artery disease) Code(s): I25.10 - ATHSCL HEART DISEASE OF [place] CORONARY ARTERY W/O ANG PCTRS (3) Hyperlipidemia Code(s): E78.5 - HYPERLIPIDEMIA, UNSPECIFIED (4) Hypertension Code(s): I10 - ESSENTIAL (PRIMARY) HYPERTENSION Assessment/Plan tPA infusion IV Heparin O2 to maintain saturation >92% Plavix Statin Follow H&H ICU monitoring Dr Pabon Critical care time spent in reviewing chart, evaluating patient and formulating plan 35 min
[2016-08-10] MEDS: ATORVASTATIN CA 20 MG TABLET (FP) PO SCH (22:31)
[2016-08-10] MEDS: TERAZOSIN HCL 5 MG CAPSULE PO SCH (22:31)
[2016-08-10] MEDS ORDERED: HEPARIN INFUSION - 500 ML IVPB ONE (22:38)
[2016-08-11 06:32] LABS: MCH 29.7 pg (25.7-33.7); MCHC 33.2 g/dl (32.0-35.9); MEAN CELL VOLUME 89.6 fl (80-96); MEAN PLT VOLUME 9.7 fl (7.5-11.1); PLATELET COUNT 111 K/MM3 (134-434); RDW 13.3 % (11.9-15.9); WHITE BLOOD COUNT 5.6 K/mm3 (4.0-10.0)
[2016-08-11 06:58] LABS: ANION GAP 8 (8-16); CO2 28 mmol/L (21-32); GLUCOSE,RANDOM 97 mg/dL (74-106); MAGNESIUM 2.3 mg/dL (1.8-2.4)
[2016-08-11 07:00] LABS: CREATININE 0.7 mg/dL (0.7-1.3); PHOSPHOROUS 3.3 mg/dL (2.5-4.9)
[2016-08-11] MEDS: HEPARIN NA (PORCINE) 5,000 UNITS/ML 1ML VIAL IVPUSH PRN (09:00)
[2016-08-11] MEDS: HEPARIN INFUSION - 500 ML IVPB SCH (09:01)
[2016-08-11] MEDS: CLOPIDOGREL BISULFATE 75 MG TABLET (FP) PO SCH (09:13)
[2016-08-11] MEDS: METOPROLOL SUCCINATE 50 MG TAB.SR.24H (FP) PO SCH (09:13)
[2016-08-11] MEDS: RANITIDINE HCL 150 MG TABLET (FP) PO SCH (09:13)
--- NOTE | 2016-08-11 11:18 | PN ---
Physical Exam: SUBJECTIVE: Patient seen and examined in ICU. Still coughing at times but better in terms of frequency and intensity. Denies chest pain, palpitation, hemoptysis, abd pain , fever or chills. No acute event noted overnight. OBJECTIVE: Vital Signs Period Temp Pulse Resp BP Sys/[place] Pulse Ox Last 24 Hr 97.8 F-99.3 F 66-78 18-20 91-123/53-82 94-100 GENERAL: AAO x 3, not in cardiopulmonary distress on 4L NC EYES: PERRLA, sclera anicteric, conjunctiva clear. LUNGS: Fair air entry with rhonchi bilaterally HEART: RRR, S1 and S2 present, no murmur ABDOMEN: Soft, nontender, nondistended, normoactive bowel sounds. EXTREMITIES: chronic venous stasis with hyperpigmentation bilaterally, no edema , +2 symmetrical b/l peripheral pulses CBCD WBC 5.6 K/mm3 (4.0-10.0) 08/11/16 05:20 RBC 4.20 M/mm3 (4.00-5.60) 08/11/16 05:20 Hgb 12.5 GM/dL (11.7-16.9) 08/11/16 05:20 Hct 37.7 % (35.4-49) 08/11/16 05:20 MCV 89.6 fl (80-96) 08/11/16 05:20 MCHC 33.2 g/dl (32.0-35.9) 08/11/16 05:20 RDW 13.3 % (11.9-15.9) 08/11/16 05:20 Plt Count 111 K/MM3 (134-434) L 08/11/16 05:20 MPV 9.7 fl (7.5-11.1) 08/11/16 05:20 CMP Sodium 141 mmol/L (136-145) 08/11/16 05:20 Potassium 4.0 mmol/L (3.5-5.1) 08/11/16 05:20 Chloride 105 mmol/L (98-107) 08/11/16 05:20 Carbon Dioxide 28 mmol/L (21-32) 08/11/16 05:20 Anion Gap 8 (8-16) 08/11/16 05:20 BUN 18 mg/dL (7-18) 08/11/16 05:20 Creatinine 0.7 mg/dL (0.7-1.3) 08/11/16 05:20 Creat Clearance w eGFR > 60 (>60) 08/08/16 05:15 Calcium 8.0 mg/dL (8.5-10.1) L 08/11/16 05:20 Total Bilirubin 0.7 mg/dL (0.2-1.0) 08/08/16 05:15 AST 20 U/L (15-37) 08/08/16 05:15 ALT 24 U/L (12-78) 08/08/16 05:15 Alkaline Phosphatase 47 U/L (45-117) 08/08/16 05:15 Total Protein 6.0 g/dl (6.4-8.2) L 08/08/16 05:15 Albumin 3.3 g/dl (3.4-5.0) L 08/08/16 05:15 Intake & Output 08/08/16 08/09/16 08/10/16 08/11/16 23:59 23:59 23:59 23:59 Intake Total 442 852 0410 504 Output Total 4958 197 1243 1100 Balance -250 510 614 -596 Weight 82 kg 80 kg 80 kg 81.465 kg Active Medications Generic Name Dose Route Start Last Admin Trade Name Freq PRN Reason Stop Dose Admin Atorvastatin Calcium 20 mg 08/08/16 22:00 08/10/16 22:31 Lipitor - PO 20 mg HS AL Administration Clopidogrel Bisulfate 75 mg 08/08/16 10:00 08/11/16 09:13 Plavix - PO 75 mg DAILY AL Administration Guaifenesin 10 ml 08/08/16 09:03 08/10/16 12:59 Robitussin - PO 10 ml Q4H PRN Administration COUGH Guaifenesin/Codeine Phosphate 5 ml 08/09/16 20:28 08/10/16 22:31 Robitussin Ac - PO 5 ml Q6H PRN Administration COUGH Heparin Sodium (Porcine) 1,000 unit 08/09/16 09:00 Heparin - IVPUSH PRN PRN Heparin Heparin Sodium (Porcine) 5,000 unit 08/09/16 09:00 08/11/16 09:00 Heparin - IVPUSH 5,000 unit PRN PRN Administration Heparin Heparin Sodium/Dextrose 500 mls @ 20 mls/hr 08/09/16 09:00 08/11/16 09:01 Heparin Infusion - IVPB 16 mls/hr TITR AL Administration Protocol 1,000 UNITS/HR Metoprolol Succinate 50 mg 08/08/16 10:00 08/11/16 09:13 Toprol Xl - PO 50 mg DAILY AL Administration Quinapril HCl 20 mg 08/08/16 10:00 08/08/16 15:31 Accupril - PO 20 mg DAILY AL Administration Ranitidine HCl 150 mg 08/08/16 10:00 08/11/16 09:13 Zantac - PO 150 mg DAILY AL Administration Terazosin HCl 5 mg 08/08/16 22:00 08/10/16 22:31 Hytrin - PO 5 mg HS AL Administration Microbiology 08/09/16 22:33 Urine Culture - Preliminary Urine - Urine Clean Catch Group D Strep Or Entero Coccus Staphylococcus Coagulase Neg IMAGING Angiogram on 08/10: patent pulmonary arteries, improved circulation of LLL and RUL CTA on 08/07: extensive, bilateral pulmonary embolism Lower extremity doppler on 08/08: No DVT. Superficial thrombus in L greater saphenous vein. ECHO on 08/08: Elevated RV pressure and reduced LV function CXR on 08/07: no acute finding EKG on 08/07: Sinus tachycardia @111bpm, L axis deviation, Incomplete RBBB, Septal infarct, age undetermined ASSESSMENT/PLAN: 76 yo M h/o CAD s/p CABG + stents x 2 on plavix and chronic venous stasis s/p vein stripping admitted to the ICU for bilateral PE. Submassive Pulmonary Embolism, s/p tPA - Remains hemodynamically stable * maintain MAP > 65 and sat > 92% - Eliquis loading of 10mg BID x 7 days then 5mg BID x 6 months - Monitor sign of bleeding Elevated troponins and BNP - Demand ischemia vs. RV strain - Downward trend CAD - Cont. metoprolol xl 50mg, atorvastatin 20 mg daily - Plavix held HTN - Cont. quinapril 20 mg daily BPH - Cont. terazosin 5 mg daily FEN - IVF not indicated - Monitor electrolytes - Liquid diet Prophylaxis - DVT: heparin gtt - GI: H2 katie Dispo - Transfer to tele Visit type - Emergency Visit Emergency Visit: No - New Patient This patient is new to me today: No - Critical Care Critical Care patient: No
--- NOTE | 2016-08-11 11:39 | PN ---
Teaching Attending Note Name of Resident: Sindhu Corrales ATTENDING PHYSICIAN STATEMENT I saw and evaluated the patient. I reviewed the resident's note and discussed the case with the resident. I agree with the resident's findings and plan as documented. SUBJECTIVE: Patient seen and examined in the ICU. Awake and alert. No CP or SOB. IV Heparin. No occult bleeding noted. Intake & Output 08/08/16 08/09/16 08/10/16 08/11/16 23:59 23:59 23:59 23:59 Intake Total 320 321 5121 504 Output Total 3993 662 2622 1100 Balance -250 -510 383 -596 Weight 180 lb 12.465 oz 176 lb 5.917 oz 176 lb 5.917 oz 179 lb 9.6 oz Last Vital Signs Temp Pulse Resp BP Pulse Ox 97.8 F 76 18 91/61 98 08/11/16 09:57 08/11/16 09:57 08/11/16 09:57 08/11/16 09:57 08/11/16 09:00 Active Medications Atorvastatin Calcium (Lipitor -) 20 mg PO HS AL Last Admin: 08/10/16 22:31 Dose: 20 mg Clopidogrel Bisulfate (Plavix -) 75 mg PO DAILY AL Last Admin: 08/11/16 09:13 Dose: 75 mg Guaifenesin (Robitussin -) 10 ml PO Q4H PRN PRN Reason: COUGH Last Admin: 08/10/16 12:59 Dose: 10 ml Guaifenesin/Codeine Phosphate (Robitussin Ac -) 5 ml PO Q6H PRN PRN Reason: COUGH Last Admin: 08/10/16 22:31 Dose: 5 ml Heparin Sodium (Porcine) (Heparin -) 1,000 unit IVPUSH PRN PRN PRN Reason: Heparin Heparin Sodium (Porcine) (Heparin -) 5,000 unit IVPUSH PRN PRN PRN Reason: Heparin Last Admin: 08/11/16 09:00 Dose: 5,000 unit Heparin Sodium/Dextrose (Heparin Infusion -) 500 mls @ 20 mls/hr IVPB TITR AL ; 1,000 UNITS/HR PRN Reason: Protocol Last Admin: 08/11/16 09:01 Dose: 16 mls/hr Metoprolol Succinate (Toprol Xl -) 50 mg PO DAILY AL Last Admin: 08/11/16 09:13 Dose: 50 mg Quinapril HCl (Accupril -) 20 mg PO DAILY [facility] Last Admin: 08/08/16 15:31 Dose: 20 mg Ranitidine HCl (Zantac -) 150 mg PO DAILY [facility] Last Admin: 08/11/16 09:13 Dose: 150 mg Terazosin HCl (Hytrin -) 5 mg PO HS [facility] Last Admin: 08/10/16 22:31 Dose: 5 mg Constitutional: Yes: Awake and alert, NAD Eyes: Yes: EOM Intact HENT: Yes: Normocephalic Neck: Yes: Trachea Midline Cardiovascular: Yes: Tachycardia, S1, S2 Respiratory: Yes: CTA Bilaterally Gastrointestinal: Yes: Normal Bowel Sounds, Soft Extremities: Yes: Less Erythema Edema: LLE: 2+, RLE: 1+ Neurological: Yes: Alert, Oriented Labs: Laboratory Results - last 24 hr 08/11/16 08/11/16 08/11/16 05:20 05:20 05:20 WBC 5.6 RBC 4.20 Hgb 12.5 Hct 37.7 MCV 89.6 MCHC 33.2 RDW 13.3 Plt Count 111 L MPV 9.7 PTT (Actin FS) 36.0 H D Sodium 141 Potassium 4.0 Chloride 105 Carbon Dioxide 28 Anion Gap 8 BUN 18 Creatinine 0.7 Random Glucose 97 Calcium 8.0 L Phosphorus 3.3 Magnesium 2.3 Problem List - Problems (1) Pulmonary embolism Code(s): I26.99 - OTHER PULMONARY EMBOLISM WITHOUT ACUTE COR PULMONALE Qualifiers: Pulmonary embolism type: other Chronicity: acute (2) CAD (coronary artery disease) Code(s): I25.10 - ATHSCL HEART DISEASE OF [place] CORONARY ARTERY W/O ANG PCTRS (3) Hyperlipidemia Code(s): E78.5 - HYPERLIPIDEMIA, UNSPECIFIED (4) Hypertension Code(s): I10 - ESSENTIAL (PRIMARY) HYPERTENSION Assessment/Plan IV Heparin -> Transition to Eliquis O2 to maintain saturation >92% Plavix Statin Follow H&H Cardiac Telemetry Dr Pabon Critical care time spent in reviewing chart, evaluating patient and formulating plan 35 min
[2016-08-11] MEDS ORDERED: PT OWN MED DRAWER 7, Y5N ONE ×3 (12:10→22:49)
[2016-08-11] MEDS: QUINAPRIL HCL 20 MG TABLET (FP) PO SCH (12:11)
[2016-08-11] MEDS: APIXABAN 5 MG TABLET PO SCH ×2 (13:22→23:18)
--- NOTE | 2016-08-11 16:46 | PN ---
Physical Exam: SUBJECTIVE: Patient seen and examined. c/o intermittent dry cough, some chest associated with cough. feels tired of sitting up in bed. denies headache, difficulty breathing, dysuria, palpitations. OBJECTIVE: Vital Signs Period Temp Pulse Resp BP Sys/Callaway Pulse Ox Last 24 Hr 97.8 F-98.4 F 67-78 18-18 88-118/53-70 94-98 GENERAL: The patient is awake, alert, and fully oriented, in no acute distress. EYES: PERRL, extraocular movements intact, sclera anicteric, conjunctiva clear. ENT: nares patent, oropharynx clear without exudates, moist mucous membranes, catheter insertion site cdi. LUNGS: clear to auscultation bilaterally, no wheezes, no crackles, no accessory muscle use., quiet at bases HEART: Regular rate and rhythm, S1, S2 without murmur, rub or gallop. ABDOMEN: Soft, nontender, nondistended, normoactive bowel sounds, no guarding EXTREMITIES: 2+ dorsalis pedis and radial pulses b/l, warm, well-perfused, no edema. left leg with steri strips in place medially. venous stasis hyperpigmented skin in left lower leg. Laboratory Results - last 24 hr 08/11/16 08/11/16 08/11/16 05:20 05:20 05:20 WBC 5.6 RBC 4.20 Hgb 12.5 Hct 37.7 MCV 89.6 MCHC 33.2 RDW 13.3 Plt Count 111 L MPV 9.7 PTT (Actin FS) 36.0 H D Sodium 141 Potassium 4.0 Chloride 105 Carbon Dioxide 28 Anion Gap 8 BUN 18 Creatinine 0.7 Random Glucose 97 Calcium 8.0 L Phosphorus 3.3 Magnesium 2.3 Active Medications Generic Name Dose Route Start Last Admin Trade Name Freq PRN Reason Stop Dose Admin Apixaban 10 mg 08/11/16 12:15 08/11/16 13:22 Eliquis - PO 08/17/16 22:01 10 mg BID AL Administration Atorvastatin Calcium 20 mg 08/08/16 22:00 08/10/16 22:31 Lipitor - PO 20 mg HS AL Administration Clopidogrel Bisulfate 75 mg 08/08/16 10:00 08/11/16 09:13 Plavix - PO 75 mg DAILY AL Administration Guaifenesin 10 ml 08/08/16 09:03 08/10/16 12:59 Robitussin - PO 10 ml Q4H PRN Administration COUGH Guaifenesin/Codeine Phosphate 5 ml 08/09/16 20:28 08/10/16 22:31 Robitussin Ac - PO 5 ml Q6H PRN Administration COUGH Metoprolol Succinate 50 mg 08/08/16 10:00 08/11/16 09:13 Toprol Xl - PO 50 mg DAILY AL Administration Quinapril HCl 20 mg 08/08/16 10:00 08/11/16 12:11 Accupril - PO 20 mg DAILY AL Administration Ranitidine HCl 150 mg 08/08/16 10:00 08/11/16 09:13 Zantac - PO 150 mg DAILY AL Administration Terazosin HCl 5 mg 08/08/16 22:00 08/10/16 22:31 Hytrin - PO 5 mg HS AL Administration ASSESSMENT/PLAN: 76 year old man with HTN, HLD, CAD s/p PCI stent, CABG and recent left saphaneous embolectomy and presented to ED with cough, found to have elevated d -dimer and admitted to ICU for b/l PE seen on CTA. Cardiovascular HTN controlled with toprol XL 50mg po daily, accupril 20mg po daily, HLD - lipitor 20mg po HS plavix on hold due to thrombocytopenia Pulmonary monitor for signs of respiratory distress acute hypoxic respiratory failure due to b/l pe s/p tpa directed thrombolysis - respiratory status improving maintain on nasal cannula, >92% saturation Guaifenesin AC 10mg po prn q4h for cough likley caused by PE GI Gerd Zantac 150mg po daily terazosin 5mg po HS Hematological - pt does not have personal or family hx of coagulopathy/PE/DVT/cancers(remote hx of likely basal cell cancer removed from his lower lip) , thrombus likely provoked from recent embolectomy/decreased mobility post-procedure. will likely require AC as outpatient monitor platelet count DVT: eliquis started this morning with heparin drip dc'd Diet: regular diet as tolerated Activity: oob as tolerated diso: dc planning, can be monitored in telemetry Visit type - Emergency Visit Emergency Visit: No - New Patient This patient is new to me today: No - Critical Care Critical Care patient: Yes Total Critical Care Time (in minutes): 35 Critical Care Statement: The care of this patient involved high complexity decision making to prevent further life threatening deterioration of the patient 's condition and/or to evalute & treat vital organ system(s) failure or risk of failure.
--- NOTE | 2016-08-11 16:46 | PN ---
Teaching Attending Note Name of Resident: Juan Delgado ATTENDING PHYSICIAN STATEMENT I saw and evaluated the patient. I reviewed the resident's note and discussed the case with the resident. I agree with the resident's findings and plan as documented. SUBJECTIVE: Patient has no complaints. He denies shortness of breath. OBJECTIVE: Vital Signs Period Temp Pulse Resp BP Sys/Callaway Pulse Ox Last 24 Hr 97.8 F-98.4 F 67-78 18-18 91-118/53-70 94-98 HEART: S1S2, RRR LUNGS: Clear ABDOMEN: Soft, non-tender, non-distended, normal BS EXTREMITIES: Bilateral venous stasis changes. No edema. LLE surgical incision with Steri-strips in place ASSESSMENT AND PLAN: This is a 76 year old man with a history of HTN, hyperlipidemia, CAD, CABG, stents, GERD, BPH, chronic venous stasis, recent LLE vein stripping who presented to the ER with shortness of breath. 1. Acute hypoxic respiratory failure secondary to bilateral pulmonary emboli - s/p catheter-directed thrombolysis with Alteplase - On heparin IV - converting to Eliquis - Continue oxygen 2. CAD, history of CABG, stents - Continue Toprol XL, Lipitor - Plavix on hold 3. HTN - Continue Accupril, Toprol XL 4. BPH - Continue Hytrin 5. Hyperlipidemia - Continue Lipitor 6. GERD 7. Chronic venous stasis, recent LLE vein stripping
[2016-08-11] MEDS ORDERED: HEPARIN NA (PORCINE) 5,000 UNITS/ML 1ML VIAL IVPUSH PRN ×2 (17:13)
[2016-08-11] MEDS ORDERED: guaiFENesin/CODEINE 5 ML UNIT-DOSE CUPS PO PRN (17:13)
[2016-08-11] MEDS ORDERED: guaiFENesin 200 MG/10 ML 10 ML UNIT-DOSE CUPS PO PRN (17:13)
[2016-08-11] MEDS ORDERED: ATORVASTATIN CA 20 MG TABLET (FP) PO SCH (22:00)
[2016-08-11] MEDS ORDERED: TERAZOSIN HCL 5 MG CAPSULE PO SCH (22:00)
[2016-08-12 08:16] LABS: MCH 30.1 pg (25.7-33.7); MCHC 33.6 g/dl (32.0-35.9); MEAN CELL VOLUME 89.6 fl (80-96); MEAN PLT VOLUME 9.9 fl (7.5-11.1); PLATELET COUNT 128 K/MM3 (134-434); RDW 13.1 % (11.9-15.9); WHITE BLOOD COUNT 5.9 K/mm3 (4.0-10.0)
[2016-08-12 08:24] LABS: ANION GAP 8 (8-16); CALCIUM 8.2 mg/dL (8.5-10.1); CO2 29 mmol/L (21-32); GLUCOSE,RANDOM 95 mg/dL (74-106)
[2016-08-12 08:25] LABS: CREATININE 0.9 mg/dL (0.7-1.3)
[2016-08-12] MEDS: APIXABAN 5 MG TABLET PO SCH ×2 (09:21→21:42)
--- NOTE | 2016-08-12 09:49 | PN ---
Progress Note (short form) - Note Progress Note: Patient seen and examined in the ICU. Awake and alert. No CP or SOB. Started on Eliquis yesterday. No occult bleeding noted. Intake & Output 08/09/16 08/10/16 08/11/16 08/12/16 23:59 23:59 23:59 23:59 Intake Total 440 1783 1044 120 Output Total 950 1400 2500 400 Balance -510 733 -5606 -622 Weight 176 lb 5.917 oz 176 lb 5.917 oz 179 lb 9.6 oz 180 lb 12.8 oz Last Vital Signs Temp Pulse Resp BP Pulse Ox 97.8 F 78 18 106/57 95 08/12/16 06:00 08/12/16 08:37 08/12/16 08:37 08/12/16 08:37 08/12/16 06:00 Active Medications Apixaban (Eliquis -) 10 mg PO BID [facility] Stop: 08/17/16 22:01 Last Admin: 08/12/16 09:21 Dose: 10 mg Atorvastatin Calcium (Lipitor -) [address] [facility] Last Admin: 08/11/16 22:51 Dose: 20 mg Clopidogrel Bisulfate (Plavix -) 75 mg PO DAILY [facility] Last Admin: 08/12/16 09:20 Dose: 75 mg Guaifenesin (Robitussin -) 10 ml PO Q4H PRN PRN Reason: COUGH Guaifenesin/Codeine Phosphate (Robitussin Ac -) 5 ml PO Q6H PRN PRN Reason: COUGH Last Admin: 08/11/16 23:22 Dose: 5 ml Metoprolol Succinate (Toprol Xl -) 50 mg PO DAILY [facility] Last Admin: 08/12/16 09:20 Dose: 50 mg Quinapril HCl (Accupril -) 10 mg PO DAILY [facility] Ranitidine HCl (Zantac -) 150 mg PO DAILY [facility] Last Admin: 08/12/16 09:20 Dose: 150 mg Terazosin HCl (Hytrin -) 5 mg PO HS [facility] Last Admin: 08/11/16 22:51 Dose: 5 mg Constitutional: Yes: Awake and alert, NAD Eyes: Yes: EOM Intact HENT: Yes: Normocephalic Neck: Yes: Trachea Midline Cardiovascular: Yes: Tachycardia, S1, S2 Respiratory: Yes: CTA Bilaterally Gastrointestinal: Yes: Normal Bowel Sounds, Soft Extremities: Yes: Less Erythema Edema: LLE: 2+, RLE: 1+ Neurological: Yes: Alert, Oriented Labs: Laboratory Results - last 24 hr 08/12/16 08/12/16 05:10 05:10 WBC 5.9 RBC 4.12 Hgb 12.4 Hct 36.9 MCV 89.6 MCHC 33.6 RDW 13.1 Plt Count 128 L MPV 9.9 Sodium 142 Potassium 4.1 Chloride 105 Carbon Dioxide 29 Anion Gap 8 BUN 20 H Creatinine 0.9 D Random Glucose 95 Calcium 8.2 L Problem List - Problems (1) Pulmonary embolism Code(s): I26.99 - OTHER PULMONARY EMBOLISM WITHOUT ACUTE COR PULMONALE Qualifiers: Pulmonary embolism type: other Chronicity: acute (2) CAD (coronary artery disease) Code(s): I25.10 - ATHSCL HEART DISEASE OF [place] CORONARY ARTERY W/O ANG PCTRS (3) Hyperlipidemia Code(s): E78.5 - HYPERLIPIDEMIA, UNSPECIFIED (4) Hypertension Code(s): I10 - ESSENTIAL (PRIMARY) HYPERTENSION Assessment/Plan Eliquis O2 to maintain saturation >92% Plavix Statin Follow H&H D/C planning Dr Pabon
[2016-08-12] MEDS ORDERED: METOPROLOL SUCCINATE 50 MG TAB.SR.24H (FP) PO SCH (10:00)
[2016-08-12] MEDS ORDERED: RANITIDINE HCL 150 MG TABLET (FP) PO SCH (10:00)
[2016-08-12] MEDS ORDERED: QUINAPRIL HCL 20 MG TABLET (FP) PO SCH (10:00)
[2016-08-12] MEDS ORDERED: CLOPIDOGREL BISULFATE 75 MG TABLET (FP) PO SCH (10:00)
[2016-08-12] MEDS ORDERED: QUINAPRIL HCL 10 MG TABLET (FP) PO SCH (10:00)
--- NOTE | 2016-08-12 12:34 | PN ---
Physical Exam: SUBJECTIVE: Patient seen and examined in ICU. Still c/o chest pain secondary to cough, although it's getting better. No other complaints. No acute event noted on cardiac monitor technician or night nurse. OBJECTIVE: Vital Signs Period Temp Pulse Resp BP Sys/Callaway Pulse Ox Last 24 Hr 97.2 F-98.8 F 57-78 17-72 86-107/53-75 95-95 GENERAL: AAO x 3, not in cardiopulmonary distress on room air EYES: PERRLA, sclera anicteric, conjunctiva clear. LUNGS: CTAB HEART: RRR, S1 and S2 present, no murmur ABDOMEN: Soft, nontender, nondistended, normoactive bowel sounds. EXTREMITIES: chronic venous stasis with hyperpigmentation bilaterally, no edema , +2 symmetrical b/l peripheral pulses CBCD WBC 5.9 K/mm3 (4.0-10.0) 08/12/16 05:10 RBC 4.12 M/mm3 (4.00-5.60) 08/12/16 05:10 Hgb 12.4 GM/dL (11.7-16.9) 08/12/16 05:10 Hct 36.9 % (35.4-49) 08/12/16 05:10 MCV 89.6 fl (80-96) 08/12/16 05:10 MCHC 33.6 g/dl (32.0-35.9) 08/12/16 05:10 RDW 13.1 % (11.9-15.9) 08/12/16 05:10 Plt Count 128 K/MM3 (134-434) L 08/12/16 05:10 MPV 9.9 fl (7.5-11.1) 08/12/16 05:10 CMP Sodium 142 mmol/L (136-145) 08/12/16 05:10 Potassium 4.1 mmol/L (3.5-5.1) 08/12/16 05:10 Chloride 105 mmol/L (98-107) 08/12/16 05:10 Carbon Dioxide 29 mmol/L (21-32) 08/12/16 05:10 Anion Gap 8 (8-16) 08/12/16 05:10 BUN 20 mg/dL (7-18) H 08/12/16 05:10 Creatinine 0.9 mg/dL (0.7-1.3) D 08/12/16 05:10 Creat Clearance w eGFR > 60 (>60) 08/08/16 05:15 Calcium 8.2 mg/dL (8.5-10.1) L 08/12/16 05:10 Total Bilirubin 0.7 mg/dL (0.2-1.0) 08/08/16 05:15 AST 20 U/L (15-37) 08/08/16 05:15 ALT 24 U/L (12-78) 08/08/16 05:15 Alkaline Phosphatase 47 U/L (45-117) 08/08/16 05:15 Total Protein 6.0 g/dl (6.4-8.2) L 08/08/16 05:15 Albumin 3.3 g/dl (3.4-5.0) L 08/08/16 05:15 Intake & Output 08/09/16 08/10/16 08/11/16 08/12/16 23:59 23:59 23:59 23:59 Intake Total 440 1783 1044 120 Output Total 950 1400 2500 400 Balance -510 912 -1456 -280 Weight 80 kg 80 kg 81.465 kg 82.01 kg Active Medications Generic Name Dose Route Start Last Admin Trade Name Freq PRN Reason Stop Dose Admin Apixaban 10 mg 08/11/16 12:15 08/12/16 09:21 Eliquis - PO 08/17/16 22:01 10 mg BID AL Administration Atorvastatin Calcium 20 mg 08/11/16 22:00 08/11/16 22:51 Lipitor - PO 20 mg HS AL Administration Clopidogrel Bisulfate 75 mg 08/12/16 10:00 08/12/16 09:20 Plavix - PO 75 mg DAILY AL Administration Guaifenesin 10 ml 08/11/16 17:13 Robitussin - PO Q4H PRN COUGH Guaifenesin/Codeine Phosphate 5 ml 08/11/16 17:13 08/11/16 23:22 Robitussin Ac - PO 5 ml Q6H PRN Administration COUGH Metoprolol Succinate 50 mg 08/12/16 10:00 08/12/16 09:20 Toprol Xl - PO 50 mg DAILY AL Administration Quinapril HCl 10 mg 08/12/16 10:00 Accupril - PO DAILY AL Ranitidine HCl 150 mg 08/12/16 10:00 08/12/16 09:20 Zantac - PO 150 mg DAILY AL Administration Terazosin HCl 5 mg 08/11/16 22:00 08/11/16 22:51 Hytrin - PO 5 mg HS AL Administration Microbiology 08/09/16 22:33 Urine Culture - Preliminary Urine - Urine Clean Catch Group D Strep Or Entero Coccus Staphylococcus Haemolyticus IMAGING Angiogram on 08/10: patent pulmonary arteries, improved circulation of LLL and RUL CTA on 08/07: extensive, bilateral pulmonary embolism Lower extremity doppler on 08/08: No DVT. Superficial thrombus in L greater saphenous vein. ECHO on 08/08: Elevated RV pressure and reduced LV function CXR on 08/07: no acute finding EKG on 08/07: Sinus tachycardia @111bpm, L axis deviation, Incomplete RBBB, Septal infarct, age undetermined ASSESSMENT/PLAN: 76 yo M h/o CAD s/p CABG + stents x 2 on plavix and chronic venous stasis s/p vein stripping admitted to the ICU for bilateral PE. Submassive Pulmonary Embolism, s/p tPA - Remains hemodynamically stable * maintain MAP > 65 and sat > 92% - Eliquis loading of 10mg BID x 7 days then 5mg BID x 6 months - No sign of bleeding Elevated troponins and BNP - Demand ischemia vs. RV strain - Resolved CAD - Cont. metoprolol xl 50mg, atorvastatin 20 mg daily - Cont. Plavix HTN - Decreased quinapril 20 mg daily to 10mg due to low BP BPH - Cont. terazosin 5 mg daily FEN - IVF not indicated - Monitor electrolytes - Low Na diet Prophylaxis - DVT: on eliquis and plavix - GI: H2 katie Dispo - Awaiting PT then discharge Visit type - Emergency Visit Emergency Visit: No - New Patient This patient is new to me today: No - Critical Care Critical Care patient: No
--- NOTE | 2016-08-12 13:16 | PN ---
Teaching Attending Note Name of Resident: Juan Delgado ATTENDING PHYSICIAN STATEMENT I saw and evaluated the patient. I reviewed the resident's note and discussed the case with the resident. I agree with the resident's findings and plan as documented. SUBJECTIVE: Patient has no complaints. OBJECTIVE: Vital Signs Period Temp Pulse Resp BP Sys/[place] Pulse Ox Last 24 Hr 97.2 F-98.8 F 57-78 17-72 86-107/53-75 95-95 HEART: S1S2, RRR LUNGS: Clear ABDOMEN: Soft, non-tender, non-distended, normal BS EXTREMITIES: Bilateral venous stasis changes. No edema. LLE surgical incision with Steri-strips in place ASSESSMENT AND PLAN: This is a 76 year old man with a history of HTN, hyperlipidemia, CAD, CABG, stents, GERD, BPH, chronic venous stasis, recent LLE vein stripping who presented to the ER with shortness of breath. 1. Acute hypoxic respiratory failure secondary to bilateral pulmonary emboli - s/p catheter-directed thrombolysis with Alteplase - Continue Eliquis 2. CAD, history of CABG, stents - Continue Toprol XL, Lipitor - Plavix on hold 3. HTN - Continue Toprol XL, Accupril - dose adjusted secondary to hypotension 4. BPH - Continue Hytrin 5. Hyperlipidemia - Continue Lipitor 6. GERD 7. Chronic venous stasis, recent LLE vein stripping
--- NOTE | 2016-08-12 15:28 | PN ---
Physical Exam: SUBJECTIVE: Patient seen and examined. denies chest pain, palpitations, headache. feel sob when coughing. OBJECTIVE: Vital Signs Period Temp Pulse Resp BP Sys/[place]away Pulse Ox Last 24 Hr 97.2 F-98.8 F 57-78 17-20 80-107/52-75 95-95 GENERAL: The patient is awake, alert, and fully oriented, in no acute distress. EYES: PERRL, extraocular movements intact, sclera anicteric, conjunctiva clear. No ptosis. ENT: oropharynx clear without exudates, moist mucous membranes, catherter insertion site on right side cdi, no surrounding erythema LUNGS: Breath sounds equal, clear to auscultation bilaterally, no wheezes, no crackles, no accessory muscle use. HEART: Regular rate and rhythm, S1, S2 without murmur, rub or gallop. ABDOMEN: Soft, nontender, nondistended, normoactive bowel sounds, no guarding EXTREMITIES: 2+ radial and dorsalis pedis, pulses, warm, well-perfused, no edema. Laboratory Results - last 24 hr 08/12/16 08/12/16 05:10 05:10 WBC 5.9 RBC 4.12 Hgb 12.4 Hct 36.9 MCV 89.6 MCHC 33.6 RDW 13.1 Plt Count 128 L MPV 9.9 Sodium 142 Potassium 4.1 Chloride 105 Carbon Dioxide 29 Anion Gap 8 BUN 20 H Creatinine 0.9 D Random Glucose 95 Calcium 8.2 L Active Medications Generic Name Dose Route Start Last Admin Trade Name Freq PRN Reason Stop Dose Admin Apixaban 10 mg 08/11/16 12:15 08/12/16 09:21 Eliquis - PO 08/17/16 22:01 10 mg BID AL Administration Atorvastatin Calcium 20 mg 08/11/16 22:00 08/11/16 22:51 Lipitor - PO 20 mg HS AL Administration Clopidogrel Bisulfate 75 mg 08/12/16 10:00 08/12/16 09:20 Plavix - PO 75 mg DAILY AL Administration Guaifenesin 10 ml 08/11/16 17:13 Robitussin - PO Q4H PRN COUGH Guaifenesin/Codeine Phosphate 5 ml 08/11/16 17:13 08/11/16 23:22 Robitussin Ac - PO 5 ml Q6H PRN Administration COUGH Metoprolol Succinate 50 mg 08/12/16 10:00 08/12/16 09:20 Toprol Xl - PO 50 mg DAILY AL Administration Quinapril HCl 10 mg 08/12/16 10:00 Accupril - PO DAILY AL Ranitidine HCl 150 mg 08/12/16 10:00 08/12/16 09:20 Zantac - PO 150 mg DAILY AL Administration Terazosin HCl 5 mg 08/11/16 22:00 08/11/16 22:51 Hytrin - PO 5 mg HS AL Administration ASSESSMENT/PLAN: 76 yr old man with HTN, CAD s/p PCI stent, CABG, and recent left saphaneous embolectomy who presented to ED with cough found to have elevated D-dimer wand admitted to ICU for b/l PE. fever likely physilogical rather than infective, monitor off abx Cardiovascular for repeat angio tolerating catheter directed thrombolysis well continue heparin drip until transition to oral ac, likely tomorrow HTN controlled with toprol and accupril HLD - lipitor pulmonary maintain on nasal cannula >92% saturation Gi GERD: zantac 150mg po daily terazosib 5mg po hs Hematological monitor off plavix, plan for oral ac post-discharge DVT on heparin drip Diet advance as tolerated Visit type - Emergency Visit Emergency Visit: No - New Patient This patient is new to me today: No - Critical Care Critical Care patient: Yes Total Critical Care Time (in minutes): 35 Critical Care Statement: The care of this patient involved high complexity decision making to prevent further life threatening deterioration of the patient 's condition and/or to evalute & treat vital organ system(s) failure or risk of failure.
[2016-08-12] MEDS ORDERED: guaiFENesin/CODEINE 5 ML UNIT-DOSE CUPS PO PRN (17:35)
[2016-08-12] MEDS ORDERED: guaiFENesin 200 MG/10 ML 10 ML UNIT-DOSE CUPS PO PRN (17:35)
[2016-08-12] MEDS ORDERED: PT OWN MED DRAWER 7, Y5N ONE (21:03)
[2016-08-12] MEDS ORDERED: ATORVASTATIN CA 20 MG TABLET (FP) PO SCH (22:00)
[2016-08-12] MEDS ORDERED: TERAZOSIN HCL 1 MG CAPSULE PO SCH (22:00)
[2016-08-13 08:13] LABS: MCH 29.9 pg (25.7-33.7); MCHC 33.9 g/dl (32.0-35.9); MEAN CELL VOLUME 88.3 fl (80-96); MEAN PLT VOLUME 9.5 fl (7.5-11.1); PLATELET COUNT 143 K/MM3 (134-434); RDW 13.4 % (11.9-15.9); WHITE BLOOD COUNT 5.4 K/mm3 (4.0-10.0)
[2016-08-13] MEDS ORDERED: RANITIDINE HCL 150 MG TABLET (FP) PO SCH (10:00)
[2016-08-13] MEDS ORDERED: QUINAPRIL HCL 10 MG TABLET (FP) PO SCH (10:00)
[2016-08-13] MEDS ORDERED: METOPROLOL SUCCINATE 50 MG TAB.SR.24H (FP) PO SCH (10:00)
[2016-08-13] MEDS ORDERED: CLOPIDOGREL BISULFATE 75 MG TABLET (FP) PO SCH (10:00)
[2016-08-13] MEDS: APIXABAN 5 MG TABLET PO SCH (11:26)
--- NOTE | 2016-08-13 12:21 | DS ---
Physical Examination Vital Signs: Vital Signs Temperature 98.9 F 08/13/16 08:00 Pulse Rate 74 08/13/16 10:42 Respiratory Rate 18 08/13/16 10:42 Blood Pressure 113/65 08/13/16 10:42 O2 Sat by Pulse Oximetry (%) 93 L 08/13/16 10:25 Constitutional: Yes: Well Nourished, No Distress, Calm Eyes: Yes: WNL, Conjunctiva Clear, EOM Intact HENT: Yes: WNL, Atraumatic, Normocephalic Neck: Yes: WNL, Supple, Trachea Midline Cardiovascular: Yes: WNL, Regular Rate and Rhythm Respiratory: Yes: WNL, Regular, CTA Bilaterally Gastrointestinal: Yes: WNL, Normal Bowel Sounds Edema: No Labs: CBC, BMP 08/13/16 06:00 08/12/16 05:10 Discharge Summary Reason For Visit: PULMONARY EMBOLISM Current Active Problems Pulmonary embolism (Acute) Other Procedures: Thrombolysis Hospital Course: This is a 76 year old man with a history of HTN, hyperlipidemia, CAD, CABG, stents, GERD, BPH, chronic venous stasis, recent LLE vein stripping who presented to the ER with shortness of breath. 1. Acute hypoxic respiratory failure secondary to bilateral pulmonary emboli - s/p catheter-directed thrombolysis with Alteplase oon 08/09 - ON Eliquis will need to follow up with pulmonary as outpatient 2. CAD, history of CABG, stents - Continue Toprol XL, Lipitor - hold Plavix and reinstate as outpatient 3. HTN - Continue Toprol XL, Accupril - dose adjusted secondary to hypotension 4. BPH - Continue Hytrin 5. Hyperlipidemia - Continue Lipitor 6. GERD 7. Chronic venous stasis, recent LLE vein stripping Condition: Improved - Instructions Diet, Activity, Other Instructions: Low sodium diet Increase activity as tolerated Measure your Blood Pressure daily Return to the ED if dizzy or passing out Return for evaluation if any signs of bleeding Referrals: Greyson Kirkland MD [Primary Care Provider] - Disposition: HOME - Home Medications Comprehensive Discharge Medication List: Ambulatory Orders Clopidogrel Bisulfate [Plavix -] 75 mg PO DAILY 06/30/13 Nitroglycerin 0.4 mg SL ASDIR PRN 06/30/13 Ranitidine HCl [Zantac] 150 mg PO DAILY 06/30/13 Simvastatin [Zocor -] 40 mg PO HS 06/30/13 Terazosin HCl 5 mg PO HS 06/30/13 Metoprolol Succinate [Toprol XL -] 50 mg PO DAILY #30 tablet 07/02/13 Apixaban [Eliquis -] 10 mg PO BID #60 tablet 08/13/16 Quinapril HCl [Accupril -] 10 mg PO DAILY #30 tablet 08/13/16
[2016-08-13 13:21] VITALS: BP 112/59; PULSE 71; TEMP 98.6
== END 2016-08-13 14:26 | disposition home or self-care (01) | DRG 163 ==
LOC: JER 22:26 → JERBED 08-08 02:08 → JICU 08-08 06:24 → J5S 08-12 18:18
PROVIDERS: ADMIT Internal Medicine; ATTEND Internal Medicine
PROC: 3E03317 Introduction of Other Thrombolytic into Peripheral Vein, Percutaneous Approach (ICD-10-PCS; principal; 2016-08-09)
PROC: 02CR3ZZ Extirpation of Matter from Left Pulmonary Artery, Percutaneous Approach (ICD-10-PCS; 2016-08-09)
PROC: 02CQ3ZZ Extirpation of Matter from Right Pulmonary Artery, Percutaneous Approach (ICD-10-PCS; 2016-08-09)
PROC: 3E03317 Introduction of Other Thrombolytic into Peripheral Vein, Percutaneous Approach (ICD-10-PCS; 2016-08-09)
PROC: B31TZZZ Fluoroscopy of Left Pulmonary Artery (ICD-10-PCS; 2016-08-09)
PROC: B31SZZZ Fluoroscopy of Right Pulmonary Artery (ICD-10-PCS; 2016-08-09)
DX: I26.99 Other pulmonary embolism without acute cor pulmonale (principal); J96.01 Acute respiratory failure with hypoxia; I24.8 Other forms of acute ischemic heart disease; I25.10 Atherosclerotic heart disease of native coronary artery without angina pectoris; E78.5 Hyperlipidemia, unspecified; I10 Essential (primary) hypertension; K21.9 Gastro-esophageal reflux disease without esophagitis; N40.0 Benign prostatic hyperplasia without lower urinary tract symptoms; I45.19 Other right bundle-branch block; R00.0 Tachycardia, unspecified; R94.31 Abnormal electrocardiogram [ECG] [EKG]; K44.9 Diaphragmatic hernia without obstruction or gangrene; I27.2 Other secondary pulmonary hypertension; I87.8 Other specified disorders of veins; Z95.5 Presence of coronary angioplasty implant and graft; Z95.1 Presence of aortocoronary bypass graft
CPT/HCPCS: 36415; 36600; 37187; 37212; 61651; 71010-TC; 71275-TC; 75743-TC; 76937-TC; 80048; 80053; 81003; 81015; 82550; 82803; 83735; 83880; 84100; 84484; 85025; 85027; 85379; 85610; 85730; 86850; 86900; 86901; 87086; 87186; 93005; 93010; 93306-TC; 93970-TC; 94761; 97116-GP; 97161-GP; 99284-25; C1769; C1887; C1894; C9999; J1644; J2997

== ENCOUNTER 2020-04-09 09:24 | Day surgery (SDC) | payer BC ==
[2020-04-06 11:48] VITALS: BMI 29.0
[2020-04-09] MEDS ORDERED: ROPIVACAINE HCL 0.5% 30ML VIAL ONE (10:24)
[2020-04-09] MEDS ORDERED: MIDAZOLAM HCL 2 MG/2 ML SINGLE DOSE VIAL ONE (10:24)
[2020-04-09] MEDS ORDERED: PROPOFOL 20 ML ONE ×2 (11:27→12:05)
[2020-04-09] MEDS ORDERED: ONDANSETRON 4 MG/2 ML VIAL IVPUSH PRN (11:54)
[2020-04-09] MEDS ORDERED: oxyCODONE HCL 5 MG TABLET PO PRN ×2 (11:54)
[2020-04-09] MEDS ORDERED: LACTATED RINGERS SOLUTION 1,000 ML IV SCH (12:00)
[2020-04-09 14:54] VITALS: BP 101/60; PULSE 59; TEMP 97.8
== END 2020-04-09 14:54 | disposition home or self-care (01) ==
LOC: FASU 09:24
PROVIDERS: ATTEND Orthopaedic Surgery
PROC: 0RNK4ZZ Release Left Shoulder Joint, Percutaneous Endoscopic Approach (ICD-10-PCS; 2020-04-09)
PROC: 0MM24ZZ Reattachment of Left Shoulder Bursa and Ligament, Percutaneous Endoscopic Approach (ICD-10-PCS; 2020-04-09)
PROC: 0RBK4ZZ Excision of Left Shoulder Joint, Percutaneous Endoscopic Approach (ICD-10-PCS; 2020-04-09)
PROC: 0LQ24ZZ Repair Left Shoulder Tendon, Percutaneous Endoscopic Approach (ICD-10-PCS; principal; 2020-04-09 11:48)
DX: M75.122 Complete rotator cuff tear or rupture of left shoulder, not specified as traumatic (principal); M75.02 Adhesive capsulitis of left shoulder; M75.42 Impingement syndrome of left shoulder; M19.012 Primary osteoarthritis, left shoulder; S43.432A Superior glenoid labrum lesion of left shoulder, initial encounter; Y93.9 Activity, unspecified; Y92.9 Unspecified place or not applicable; Y99.9 Unspecified external cause status
CPT/HCPCS: 88304-TC; 94760

== ENCOUNTER 2023-10-30 12:34 | Observation (INO) | payer BC ==
[2023-10-30 14:19] LABS: BASO % 0.4 % (0-2.0); EOS % 0.6 % (0-4.5); HEMATOCRIT 34.4 % (35.4-49); HEMOGLOBIN 11.5 GM/dL (11.7-16.9); LYMPH % 17.5 % (8-40); MCH 30.2 pg (25.7-33.7); MCHC 33.4 g/dl (32.0-35.9); MEAN CELL VOLUME 90.5 fl (80-96); MEAN PLT VOLUME 8.9 fl (7.5-11.1); MONO % 8.4 % (3.8-10.2); NEUT % 73.1 % (42.8-82.8); PLATELET COUNT 157 10^3/uL (134-434); RBC 3.81 M/mm3 (4.00-5.60); RDW 13.9 % (11.9-15.9); WHITE BLOOD COUNT 6.3 K/mm3 (4.0-10.0)
[2023-10-30 14:29] LABS: INR 1.02 (0.83-1.09); PROTHROMBIN TIME (PATIENT) 11.7 SEC (9.7-13.0)
[2023-10-30 14:32] LABS: ACTIVATED PTT 29.6 SECONDS (25.2-36.5)
[2023-10-30 15:11] LABS: ALBUMIN 3.6 g/dl (3.4-5.0); BLOOD UREA NITROGEN 42.9 mg/dL (7-18)
[2023-10-30 15:14] LABS: BILIRUBIN,TOTAL 0.4 mg/dL (0.2-1); CREATININE 1.7 mg/dL (0.55-1.3)
[2023-10-30 15:15] LABS: TOT PROT 6.3 g/dl (6.4-8.2)
[2023-10-30] MEDS ORDERED: DEXTROSE 50%-WATER 25 GM/50 ML DISP.SYRIN ONE (15:42)
[2023-10-30] MEDS ORDERED: SODIUM ZIRCONIUM CYCLOSILICATE (LOKELMA) 10 GM PACKET ONE (15:43)
[2023-10-30] MEDS ORDERED: INSULIN REGULAR HUMAN 100 UNITS/ML *VIAL ONE (15:44)
[2023-10-30] MEDS: SODIUM CHLORIDE 0.9% 500 ML INFUS.BAG IV ONE (16:00)
[2023-10-30] MEDS: SODIUM ZIRCONIUM CYCLOSILICATE (LOKELMA) 5 GM PACKET PO ONE (16:00)
[2023-10-30] MEDS: DEXTROSE 50%-WATER - 25 GM/50 ML VIAL IVPUSH ONE (16:01)
[2023-10-30] MEDS: INSULIN REGULAR HUMAN 100 UNITS/ML *VIAL IVPUSH ONE (16:01)
[2023-10-30 16:30] LABS: HIV INTERPRETATION NEGATIVE (NEGATIVE)
[2023-10-30] MEDS ORDERED: ALBUTEROL SO4 0.083% IH SOL 2.5 MG/3 ML VIAL.NEB. NEB ONE (16:37)
[2023-10-30] MEDS: ALBUTEROL SO4 0.083% IH SOL 2.5 MG/3 ML VIAL.NEB. NEB ONE (16:41)
[2023-10-30] MEDS ORDERED: NITROGLYCERIN SUBLINGUAL 1/150 0.4 MG TAB SL PRN ×2 (17:52→19:01)
[2023-10-30] MEDS: SODIUM CHLORIDE 1,000 ML IV SCH (18:48)
[2023-10-30 19:51] VITALS: BMI 30.7
[2023-10-30] MEDS: METOPROLOL TARTRATE 50 MG TABLET (FP) PO SCH (21:56)
[2023-10-30] MEDS: ATORVASTATIN CA 20 MG TABLET (FP) PO SCH (21:57)
[2023-10-30] MEDS: HEPARIN NA (PORCINE) 5,000 UNITS/ML 1ML VIAL SQ SCH (21:57)
[2023-10-30] MEDS ORDERED: FAMOTIDINE 20 MG TABLET PO SCH (22:00)
[2023-10-31] MEDS: TERAZOSIN HCL 5 MG CAPSULE PO SCH (00:04)
[2023-10-31 07:36] LABS: POTASSIUM 4.9 mmol/L (3.5-5.1)
[2023-10-31 07:41] LABS: CALCIUM 8.8 mg/dL (8.5-10.1)
[2023-10-31 07:42] LABS: BLOOD UREA NITROGEN 27.6 mg/dL (7-18)
[2023-10-31 07:45] LABS: CREATININE 1.1 mg/dL (0.55-1.3); PHOSPHOROUS 2.8 mg/dL (2.5-4.9)
[2023-10-31] MEDS ORDERED: METOPROLOL TARTRATE 50 MG TABLET (FP) PO SCH (10:00)
[2023-10-31 11:06] VITALS: RESP 18
[2023-10-31] MEDS: PANTOPRAZOLE 40 MG TABLET PO SCH (12:22)
[2023-10-31] MEDS: CLOPIDOGREL BISULFATE 75 MG TABLET (FP) PO SCH (12:22)
[2023-10-31 15:42] VITALS: BP 116/56; PULSE 73; TEMP 98.1
== END 2023-10-31 16:49 | disposition home or self-care (01) ==
LOC: JER 12:34 → JERBED 16:21 → J4S 17:59
PROVIDERS: ADMIT Internal Medicine; ATTEND Internal Medicine
PROC: 3E0F7GC Introduction of Other Therapeutic Substance into Respiratory Tract, Via Natural or Artificial Opening (ICD-10-PCS; principal; 2023-10-30)
PROC: 3E033GC Introduction of Other Therapeutic Substance into Peripheral Vein, Percutaneous Approach (ICD-10-PCS; 2023-10-30)
PROC: 3E023GC Introduction of Other Therapeutic Substance into Muscle, Percutaneous Approach (ICD-10-PCS; 2023-10-30)
PROC: 3E033VG Introduction of Insulin into Peripheral Vein, Percutaneous Approach (ICD-10-PCS; 2023-10-30)
PROC: 3E0337Z Introduction of Electrolytic and Water Balance Substance into Peripheral Vein, Percutaneous Approach (ICD-10-PCS; 2023-10-30)
DX: N17.9 Acute kidney failure, unspecified (principal); R94.4 Abnormal results of kidney function studies; E78.5 Hyperlipidemia, unspecified; I11.9 Hypertensive heart disease without heart failure; E87.5 Hyperkalemia; K21.9 Gastro-esophageal reflux disease without esophagitis; I87.8 Other specified disorders of veins; Z95.1 Presence of aortocoronary bypass graft; Z95.5 Presence of coronary angioplasty implant and graft
CPT/HCPCS: 0241U-QW; 36415; 71045-TC-FY; 80048; 80053; 84100; 84484; 85025; 85610; 85730; 86803; 86850; 86900; 86901; 87389; 93005; 93010; 93306-TC; 94640; 96361; 96372; 96374; 96375; 99285-25; G0378; J1644